=== PATIENT | male | born 1940 | race Caucasian/White ===

== ENCOUNTER 2017-07-17 20:25 | Inpatient (IN) | payer MEDICARE, OTHER ==
--- NOTE | 2017-07-17 21:20 | ER Document Report ---
ED Respiratory Problem - General Chief Complaint: Shortness Of Breath Stated Complaint: SHORTNESS OF BREATH Time Seen by Provider: 07/17/17 21:08 Notes: Patient is a 77-year-old male that comes emergency department for chief complaint of shortness of breath, weakness, and nonproductive cough. He states he has not been feeling good for 2 weeks but tonight he started feeling much worse. He denies fever, reports pain in his chest and is having frequent coughing episodes. He reports some pain in his upper abdomen as well. Past medical history includes CAD with bypass, AICD, CHF, atrial fibrillation, he denies history of COPD or asthma. TRAVEL OUTSIDE OF THE [place] IN LAST 30 DAYS: No - Related Data Allergies/Adverse Reactions: Penicillins Allergy (Verified 07/17/17 20:26) Generalized rash Past Medical History - General Information source: Patient - Social History Smoking Status: Never Smoker Chew tobacco use (# tins/day): No Frequency of alcohol use: None Drug Abuse: None Lives with: Family Family History: Reviewed & Not Pertinent Patient has suicidal ideation: No Patient has homicidal ideation: No - Past Medical History Cardiac Medical History: Reports: Hx Atrial Fibrillation, Hx Congestive Heart Failure, Hx Heart Attack - 1991, Hx Hypercholesterolemia Denies: Hx Hypertension Pulmonary Medical History: Reports: Hx COPD Denies: Hx Asthma Neurological Medical History: Denies: Hx Cerebrovascular Accident, Hx Seizures Renal/ Medical History: Denies: Hx Peritoneal Dialysis GI Medical History: Reports: Hx Hiatal Hernia. Denies: Hx Hepatitis, Hx Ulcer Musculoskeltal Medical History: Reports Hx Arthritis Psychiatric Medical History: Denies: Hx Depression Infectious Medical History: Denies: Hx Hepatitis Past Surgical History: Reports: Hx Open Heart Surgery - TRIPLE BYPASS 1991, Hx Pacemaker Review of Systems - Review of Systems Constitutional: No symptoms reported EENT: No symptoms reported Cardiovascular: See HPI Respiratory: See HPI Gastrointestinal: No symptoms reported Genitourinary: No symptoms reported Male Genitourinary: No symptoms reported Musculoskeletal: No symptoms reported Skin: No symptoms reported Hematologic/Lymphatic: No symptoms reported Neurological/Psychological: No symptoms reported Physical Exam - Vital signs Vitals: Temp Pulse Resp BP Pulse Ox 99.0 F 65 20 128/55 H 92 07/17/17 20:45 07/17/17 20:45 07/17/17 20:45 07/17/17 20:45 07/17/17 20:45 Interpretation: Normal - General General appearance: Appears well In distress: None - HEENT Head: Normocephalic, Atraumatic Eyes: Normal Pupils: PERRL - Respiratory Respiratory status: No respiratory distress, Tachypnea. No: Retractions Chest status: Nontender Breath sounds: Nonproductive cough, Rales - Rales are heard on exam, mainly in the lung bases, greater on the left than the right. No: Wheezing Chest palpation: Normal - Cardiovascular Rhythm: Regular Heart sounds: Normal auscultation Murmur: No - Abdominal Inspection: Normal Distension: No distension Bowel sounds: Normal Tenderness: Nontender Organomegaly: No organomegaly - Back Back: Normal, Nontender - Extremities General upper extremity: Normal inspection, Nontender, Normal color, Normal ROM , Normal temperature General lower extremity: Normal inspection, Nontender, Normal color, Normal ROM , Normal temperature, Normal weight bearing. No: Afua's sign - Neurological Neuro grossly intact: Yes Cognition: Normal Orientation: AAOx4 Neto Coma Scale Eye Opening: Spontaneous Neto Coma Scale Verbal: Oriented Neto Coma Scale Motor: Obeys Commands Neto Coma Scale Total: 15 Speech: Normal Motor strength normal: LUE, RUE, LLE, RLE Sensory: Normal - Psychological Associated symptoms: Normal affect, Normal mood - Skin Skin Temperature: Warm Skin Moisture: Dry Skin Color: Normal Course - Re-evaluation Re-evalutation: EKG shows atrial paced rhythm without T-wave inversions or ST segment changes in consecutive leads. Patient has rales on examination, he has mild tachypnea, he has hypoxia on room air and dyspnea on exertion. He does have a nonproductive cough. No leukocytosis, chest x-ray showing vascular congestion, BNP is elevated, troponin is not elevated. Chemistry unremarkable. Consistent with CHF exacerbation. Patient states he is compliant with his Lasix 40 mg daily, he is no longer on digoxin. Because of patient's hypoxia without oxygen, dyspnea on exertion, and pulmonary vascular congestion patient was started on Lasix, given nitroglycerin patch, will discuss for admission with hospitalist. Patient and state understanding and agreement with this plan. Discussed with Dr. Sandoval, internal medicine, patient will be admitted to telemetry. - Vital Signs Vital signs: Temp Pulse Resp BP Pulse Ox 98.2 F 75 16 129/57 H 96 07/18/17 04:07 07/18/17 04:07 07/18/17 04:07 07/18/17 04:07 07/18/17 04:07 - Laboratory Result Diagrams: 07/18/17 03:50 07/17/17 21:45 Laboratory results interpreted by me: 07/17/17 07/17/17 07/17/17 21:45 21:45 21:45 RBC 3.18 L Hgb 9.9 L Hct 29.0 L RDW 14.8 H VBG pH BUN 30 H Creatinine 1.28 H Est GFR (Non-Af Amer) 54 L NT-Pro-B Natriuret Pep 8800 H 07/17/17 21:45 RBC Hgb Hct RDW VBG pH 7.45 H BUN Creatinine Est GFR (Non-Af Amer) NT-Pro-B Natriuret Pep Discharge - Discharge Clinical Impression: Pulmonary vascular congestion, Hypoxia CHF, acute on chronic Qualifiers: Heart failure type: unspecified Qualified Code(s): I50.9 - Heart failure, unspecified Condition: Stable Disposition: ADMITTED INPATIENT Admitting Provider: Hospitalist Unit Admitted: Telemetry
--- NOTE | 2017-07-17 22:06 | RADIOLOGY REPORT (SQ) ---
EXAM DESCRIPTION: CHEST SINGLE VIEW COMPLETED DATE/TIME: 07/17/2017 9:53 pm REASON FOR STUDY: shortness of breath, cough, hypoxia COMPARISON: 01/05/2016 NUMBER OF VIEWS: Two views. TECHNIQUE: Frontal and lateral radiographic views of the chest acquired. LIMITATIONS: None. FINDINGS: LUNGS AND PLEURA: No opacities, masses or pneumothorax. No pleural effusion. MEDIASTINUM AND HILAR STRUCTURES: No masses or contour abnormality. HEART AND VASCULAR STRUCTURES: Cardiac enlargement. Vascular congestion. BONES: No acute findings. HARDWARE: Cardiac AICD. OTHER: No other significant finding. IMPRESSION: CARDIAC ENLARGEMENT. VASCULAR CONGESTION. TECHNICAL DOCUMENTATION: JOB ID: [id number] [employer]- All Rights Reserved Reading location - IP/workstation name: [email or web address]
[2017-07-17 22:07] LABS: VENOUS BLOOD BASE EXCESS 1.7 mmol/L; VENOUS BLOOD HCO3 25.6 mmol/L (20-32); VENOUS BLOOD PH 7.45 (7.30-7.42)
[2017-07-17 22:08] LABS: ABSOLUTE BASOPHILS # (AUTO) 0.1 10^3/uL (0.0-0.2); ABSOLUTE EOSINOPHILS # (AUTO) 0.3 10^3/uL (0.0-0.6); ABSOLUTE LYMPHOCYTES (AUTO) 1.7 10^3/uL (0.5-4.7); ABSOLUTE MONOCYTES (AUTO) 0.7 10^3/uL (0.1-1.4); ABSOLUTE NEUT (AUTO) 5.5 10^3/uL (1.7-8.2); EOSINOPHILS % (AUTO) 3.3 % (0-6); HEMOGLOBIN 9.9 g/dL (13.5-17.0); LYMPHOCYTES % (AUTO) 20.9 % (13-45); MEAN CORPUSCULAR HEMOGLOBIN 31.1 pg (27.0-33.4); MEAN CORPUSCULAR HGB CONC 34.1 g/dL (32.0-36.0); MEAN CORPUSCULAR VOLUME 91 fl (80-97); MONOCYTES % (AUTO) 8.3 % (3-13); PLATELET COUNT 241 10^3/uL (150-450); RED BLOOD COUNT 3.18 10^6/uL (4.35-5.55); RED CELL DISTRIBUTION WIDTH 14.8 % (11.5-14.0); SEGMENTED NEUTROPHILS % (AUTO) 66.5 % (42-78); TOTAL CELLS COUNTED % (AUTO) 100 %; WHITE BLOOD COUNT 8.3 10^3/uL (4.0-10.5)
[2017-07-17 22:24] LABS: ALANINE AMINOTRANSFERASE 22 U/L (21-72); ALBUMIN 3.9 g/dL (3.5-5.0); ALKALINE PHOSPHATASE 56 U/L (38-126); ANION GAP 11 (5-19); ASPARTATE AMINO TRANSFERASE 23 U/L (17-59); BILIRUBIN,DIRECT 0.2 mg/dL (0.0-0.4); BILIRUBIN,TOTAL 0.7 mg/dL (0.2-1.3); BLOOD UREA NITROGEN 30 mg/dL (7-20); CALCIUM 9.3 mg/dL (8.4-10.2); CARBON DIOXIDE 27 mmol/L (22-30); CHLORIDE 99 mmol/L (98-107); CREATINE KINASE 70 U/L (55-170); GLUCOSE 104 mg/dL (75-110); POTASSIUM 4.4 mmol/L (3.6-5.0); SODIUM 137.1 mmol/L (137-145); TOTAL PROTEIN 6.3 g/dL (6.3-8.2)
[2017-07-17 22:36] LABS: CREATINE KINASE MB 0.94 ng/mL (<4.55); NT PRO BNP 8800 pg/mL (<450)
[2017-07-17 22:37] LABS: TROPONIN I < 0.012 ng/mL
[2017-07-17] MEDS ORDERED: NITROGLYCERIN 5 MG (0.2 MG/HR) PATCH.TD24 TD ONE (22:53)
[2017-07-17] MEDS ORDERED: FUROSEMIDE INJ/PF 40 MG/4 ML SDV IV ONE (22:54)
[2017-07-17] MEDS ORDERED: ENALAPRILAT DIHYDRATE INJ/PF 1.25 MG/1 ML SDV IV PRN (23:00)
[2017-07-17] MEDS ORDERED: MAG HYDROX/AL HYDROX/SIMETH SUSP 30 ML UDCUP PO PRN (23:00)
[2017-07-17] MEDS ORDERED: MAGNESIUM HYDROXIDE SUSP 30 ML UDCUP PO PRN (23:00)
[2017-07-18] MEDS ORDERED: ACETAMINOPHEN 325 MG TABLET ONE (00:12)
[2017-07-18] MEDS ORDERED: CAPTOPRIL 25 MG TABLET PO ONE (00:15)
[2017-07-18] MEDS: ACETAMINOPHEN 325 MG TABLET PO PRN ×2 (00:17→16:41)
[2017-07-18 04:39] LABS: ABSOLUTE BASOPHILS # (AUTO) 0.1 10^3/uL (0.0-0.2); ABSOLUTE EOSINOPHILS # (AUTO) 0.2 10^3/uL (0.0-0.6); ABSOLUTE LYMPHOCYTES (AUTO) 1.6 10^3/uL (0.5-4.7); ABSOLUTE MONOCYTES (AUTO) 0.6 10^3/uL (0.1-1.4); ABSOLUTE NEUT (AUTO) 6.9 10^3/uL (1.7-8.2); ABSOLUTE RETICS # 0.098 10^6/uL (0.028-0.122); BASOPHILS % (AUTO) 0.8 % (0-2); EOSINOPHILS % (AUTO) 2.1 % (0-6); HEMATOCRIT 28.8 % (37.9-51.0); HEMOGLOBIN 9.9 g/dL (13.5-17.0); LYMPHOCYTES % (AUTO) 16.7 % (13-45); MEAN CORPUSCULAR HGB CONC 34.3 g/dL (32.0-36.0); MEAN CORPUSCULAR VOLUME 91 fl (80-97); MONOCYTES % (AUTO) 6.7 % (3-13); PLATELET COUNT 228 10^3/uL (150-450); RED BLOOD COUNT 3.19 10^6/uL (4.35-5.55); RED CELL DISTRIBUTION WIDTH 14.8 % (11.5-14.0); RETICULOCYTE COUNT (AUTO) 3.07 % (0.66-2.85); SEGMENTED NEUTROPHILS % (AUTO) 73.7 % (42-78); TOTAL CELLS COUNTED % (AUTO) 100 %; WHITE BLOOD COUNT 9.3 10^3/uL (4.0-10.5)
--- NOTE | 2017-07-18 04:39 | PDOC H&P ---
History of Present Illness Admission Date/PCP: 07/17/17 23:15 MINA GARCIA MD Patient complains of: Shortness of breath History of Present Illness: ENRIQUETA BRINK is a 77 year old male with a past medical history of atrial fibrillation, congestive heart failure, coronary artery disease, status post coronary artery bypass graft in 1991, permanent pacemaker placement, dyslipidemia, and COPD. Patient presents with 2 weeks of shortness of breath and cough with clear sputum. Denying rhinorrhea, postnasal drip, GERD fever or chest pain. He denies recent change in medications but admits noncompliance with diet. In the emergency room his workup is notable for a hemoglobin of only 9.9 from baseline of 11, a chest x-ray showing cardiomegaly and fluid overload with a BNP of 8000. He started on IV Lasix and for the hospitalist for admission. Past Medical History Cardiac Medical History: Reports: Atrial Fibrillation, Congestive Heart Failure , Myocardial Infarction - 1991, Hyperlipidema Denies: Hypertension Pulmonary Medical History: Reports: Chronic Obstructive Pulmonary Disease (COPD) Denies: Asthma Neurological Medical History: Denies: Seizures GI Medical History: Reports: Hiatal Hernia Denies: Hepatitis Musculoskeltal Medical History: Reports: Arthritis Psychiatric Medical History: Denies: Depression Hematology: Denies: Anemia, Sickle Cell Disease Past Surgical History Past Surgical History: Reports: Coronary Artery Bypass Graft, Pacemaker Social History Information Source: Patient, [facility] Records Lives with: Spouse/Significant other Smoking Status: Former Smoker Number of Years Smokin Last Time Smoked: approx 1976 Frequency of Alcohol Use: None Hx Recreational Drug Use: No Drugs: None Hx Prescription Drug Abuse: No - Advance Directive Resuscitation Status: Full Code Family History Family History: Hypertension Parental Family History Reviewed: Yes Children Family History Reviewed: Yes Sibling(s) Family History Reviewed.: Yes Medication/Allergy Home Medications: Alfuzosin HCl [Alfuzosin HCl ER] 10 mg PO DAILY 01/06/16 Apixaban [Eliquis 2.5 mg Tablet] 2.5 mg PO BID 01/06/16 Aspirin [Aspirin 81 mg Chewable Tablet] 81 mg PO DAILY 01/06/16 Atorvastatin Calcium 40 mg PO DAILY 01/06/16 Captopril [Capoten 25 mg Tablet] 25 mg PO Q12H 01/06/16 Carvedilol [Coreg 25 mg Tablet] 1 tab PO Q12 01/06/16 Cetirizine HCl [Zyrtec 10 mg Tablet] 10 mg PO DAILY 01/06/16 Digoxin 250 mcg PO DAILY 01/06/16 Fenofibrate Nanocrystallized [Fenofibrate] 145 mg PO DAILY 01/06/16 [place]-3/Dha/Epa/Fish Oil [Fish Oil 1,000 mg Softgel] 1 cap PO BID 01/06/16 Ranitidine HCl [Zantac 150 mg Tablet] 150 mg PO BID 01/06/16 Acetaminophen [Tylenol 325 mg Tablet] 650 mg PO Q8HP PRN tablet 01/07/16 Furosemide [Lasix 40 mg Tablet] 20 mg PO BID #90 tablet 01/07/16 Allergies/Adverse Reactions: Penicillins Allergy (Verified 07/17/17 20:26) Generalized rash Review of Systems Constitutional: PRESENT: as per HPI, fatigue. ABSENT: fever(s), headache(s), night sweats, weight gain Eyes: ABSENT: visual disturbances Ears: ABSENT: hearing changes Cardiovascular: PRESENT: as per HPI, dyspnea on exertion, edema, orthropnea. ABSENT: chest pain, palpitations Respiratory: PRESENT: as per HPI, cough. ABSENT: dyspnea, hemoptysis Gastrointestinal: ABSENT: abdominal pain, constipation, diarrhea, hematemesis, hematochezia, nausea, vomiting Genitourinary: ABSENT: dysuria, hematuria Musculoskeletal: ABSENT: joint swelling Integumentary: ABSENT: rash, wounds Neurological: ABSENT: abnormal gait, abnormal speech, confusion, dizziness, focal weakness, syncope Psychiatric: ABSENT: anxiety, depression, homidical ideation, suicidal ideation Endocrine: ABSENT: cold intolerance, heat intolerance, polydipsia, polyuria Hematologic/Lymphatic: ABSENT: easy bleeding, easy bruising Physical Exam Vital Signs: Temp Pulse Resp BP Pulse Ox 98.2 F 75 16 129/57 H 96 07/18/17 04:07 07/18/17 04:07 07/18/17 04:07 07/18/17 04:07 07/18/17 04:07 Intake & Output 07/16/17 07/17/17 07/18/17 11:59 11:59 11:59 Output Total 500 Balance -500 Weight 76.6 kg General appearance: PRESENT: cooperative, mild distress. ABSENT: hard of hearing, severe distress Head exam: PRESENT: atraumatic, normocephalic Eye exam: PRESENT: conjunctiva pink, EOMI, PERRLA. ABSENT: scleral icterus Ear exam: PRESENT: normal external ear exam Mouth exam: PRESENT: moist, tongue midline Neck exam: PRESENT: JVD. ABSENT: carotid bruit, lymphadenopathy, thyromegaly Respiratory exam: PRESENT: crackles, prolonged expiratory phas, rales, tachypnea. ABSENT: rhonchi, wheezes Cardiovascular exam: PRESENT: RRR, +S1, +S2 Pulses: PRESENT: normal dorsalis pedis pul Vascular exam: PRESENT: normal capillary refill GI/Abdominal exam: PRESENT: normal bowel sounds, soft. ABSENT: distended, guarding, mass, organolmegaly, rebound, tenderness Rectal exam: PRESENT: deferred Extremities exam: PRESENT: full ROM. ABSENT: calf tenderness, clubbing, pedal edema Neurological exam: PRESENT: alert, awake, oriented to person, oriented to place , oriented to time, oriented to situation, CN II-XII grossly intact. ABSENT: motor sensory deficit Psychiatric exam: PRESENT: appropriate affect, normal mood. ABSENT: homicidal ideation, suicidal ideation Skin exam: PRESENT: dry, intact, warm. ABSENT: cyanosis, rash Results Impressions: Chest X-Ray 07/17/17 21:18 IMPRESSION: CARDIAC ENLARGEMENT. VASCULAR CONGESTION. Assessment & Plan - Diagnosis (1) CHF, acute on chronic Qualifiers: Heart failure type: unspecified Qualified Code(s): I50.9 - Heart failure, unspecified Is this a current diagnosis for this admission?: Yes Plan: CHF care set, gentle diuresis medication optimization and education. (2) Anemia Is this a current diagnosis for this admission?: Yes Plan: Suspected iron deficiency follow-up labs (3) Acute renal failure Is this a current diagnosis for this admission?: Yes Plan: Likely secondary to CHF exacerbation reevaluate following compensation (4) CAD (coronary artery disease) Qualifiers: Coronary Disease-Associated Artery/Lesion type: mo[place] artery Associated angina: without angina Is this a current diagnosis for this admission?: Yes Plan: Serial cardiac enzymes. - Time Time Spent: 50 to 70 Minutes - Inpatient Certification Medical Necessity: Need Close Monitoring Due to Risk of Patient Decompensation
[2017-07-18 05:02] LABS: IRON(TIBC) 40.4 ug/dL (49-181)
[2017-07-18 05:14] LABS: CREATINE KINASE MB 0.76 ng/mL (<4.55)
[2017-07-18 05:18] LABS: TROPONIN I < 0.012 ng/mL
[2017-07-18 06:14] LABS: FOLATE > 20.00 ng/mL (>2.76)
[2017-07-18] MEDS ORDERED: ASPIRIN 81 MG TABLET, CHEWABLE PO SCH (10:00)
[2017-07-18] MEDS ORDERED: CARVEDILOL 12.5 MG TABLET PO SCH (10:00)
[2017-07-18 10:36] LABS: ANION GAP 12 (5-19); BLOOD UREA NITROGEN 26 mg/dL (7-20); CALCIUM 9.4 mg/dL (8.4-10.2); CARBON DIOXIDE 27 mmol/L (22-30); CHLORIDE 100 mmol/L (98-107); CREATINE KINASE 65 U/L (55-170); GLUCOSE 145 mg/dL (75-110); POTASSIUM 3.7 mmol/L (3.6-5.0); SODIUM 139.3 mmol/L (137-145)
--- NOTE | 2017-07-18 10:49 | EKG REPORT ---
SEVERITY:- ABNORMAL ECG - ATRIAL-SENSED VENTRICULAR-PACED RHYTHM : Confirmed by: Usman Galicia 18-Jul-2017 10:48:09
[2017-07-18] MEDS: FUROSEMIDE INJ/PF 40 MG/4 ML SDV IV SCH ×2 (10:50→22:38)
[2017-07-18] MEDS: POTASSIUM CHLORIDE 10 MEQ TABLET.SA PO SCH ×2 (10:50→22:39)
[2017-07-18 10:54] LABS: TROPONIN I < 0.012 ng/mL
--- NOTE | 2017-07-18 13:40 | XCELERA REPORT ---
[address] [address] Transthoracic Echocardiogram Report Name: ENRIQUETA BRINK Age: 77 yrs Gender: Male : 1940 Patient Status: Inpatient Patient Location: [address] [place], [place] [address] Study Date: 07/18/2017 08:26 AM Height: 65 in Weight: 168 lb BSA: 1.8 m2 Procedure: A complete two-dimensional transthoracic echocardiogram was performed (2D, M-mode, spectral and color flow Doppler). The study was technically difficult with many images being suboptimal in quality. Reason For Study: overload Ordering Physician: RENATA CABRAL Performed By: Claribel Newby Interpretation Summary LV EF is 35% The left ventricle is moderately dilated. Left ventricular systolic function is moderately reduced. There is normal left ventricular wall thickness. Doppler measurements suggest pseudonormalized left ventricular relaxation, which is associated with grade II/IV or mild to moderate diastolic dysfunction There is apical wall akinesis There is mild to moderate global hypokinesis of the left ventricle. The right ventricle is grossly normal size. The right ventricular systolic function is normal. The left atrium is moderately dilated. The right atrium is normal in size There is a moderate amount of mitral regurgitation There is no mitral valve stenosis. There is a mild amount of aortic regurgitation There is no aortic valve stenosis There is a mild amount of tricuspid regurgitation There is moderate to severe pulmonary hypertension by echo Best estimated RVSP is approximately 60 mm/Hg. The aortic root is not well visualized. The inferior vena cava appeared normal and decreased < 50% with respiration (RAP 10-15 mmHg) There is no pericardial effusion. MMode/2D Measurements & Calculations RVDd: 3.3 cm LVIDd: 7.1 cm FS: 26.8 % Ao root diam: 2.8 cm IVSd: 0.61 cm LVIDs: 5.2 cm EDV(Teich): 263.2 ml LVPWd: 0.86 cm ESV(Teich): 129.2 ml Ao root area: 6.1 cm2 EF(Teich): 50.9 % Doppler Measurements & Calculations MV E max joey: MV dec slope: Ao V2 max: AI max joey: 100.8 cm/sec 178.8 cm/sec 314.5 cm/sec MV A max joey: 630.0 cm/sec2 Ao max PG: AI max P.6 cm/sec MV dec time: 12.8 mmHg 39.6 mmHg MV E/A: 2.0 0.16 sec AI dec slope: 204.3 cm/sec2 AI P1/2t: 451.0 msec LV V1 max PG: MR max joey: PA V2 max: PI end-d joey: 3.1 mmHg 516.0 cm/sec 109.7 cm/sec 177.1 cm/sec LV V1 max: MR max PG: PA max P.2 cm/sec 106.5 mmHg 4.8 mmHg TR max joey: 383.0 cm/sec TR max P.8 mmHg Left Ventricle The left ventricle is moderately dilated. There is normal left ventricular wall thickness. Left ventricular systolic function is moderately reduced. LV EF is 35%. Doppler measurements suggest pseudonormalized left ventricular relaxation, which is associated with grade II/IV or mild to moderate diastolic dysfunction. There is apical wall akinesis. There is mild to moderate global hypokinesis of the left ventricle. Right Ventricle The right ventricle is grossly normal size. There is normal right ventricular wall thickness. The right ventricular systolic function is normal. Atria The right atrium is normal in size. The left atrium is moderately dilated. Interarterial septum not well visualized and not well dopplered. Cannot comment on ASD/PFO presence. Mitral Valve The mitral valve leaflets are sclerotic, but show no functional abnormalities. There is no mitral valve stenosis. There is a moderate amount of mitral regurgitation. Aortic Valve The aortic valve is mildly calcified. There is no aortic valve stenosis. There is a mild amount of aortic regurgitation. Tricuspid Valve The tricuspid valve is not well visualized, but is grossly normal. There is no tricuspid stenosis. There is a mild amount of tricuspid regurgitation. There is moderate to severe pulmonary hypertension by echo. Best estimated RVSP is approximately 60 mm/Hg. Pulmonic Valve The pulmonic valve is not well visualized. Great Vessels The aortic root is not well visualized. The inferior vena cava appeared normal and decreased < 50% with respiration (RAP 10-15 mmHg). Effusions There is no pericardial effusion. : RENATA CABRAL > Usman Galicia
[2017-07-18] MEDS: APIXABAN 2.5 MG TABLET PO SCH ×2 (14:23→21:10)
[2017-07-18] MEDS: CAPTOPRIL 25 MG TABLET PO SCH ×2 (14:23→22:40)
[2017-07-18] MEDS ORDERED: OXYCODONE-ACETAMINOPHEN 5-325 MG TABLET PO PRN (15:58)
[2017-07-18 16:36] LABS: CREATINE KINASE MB 0.82 ng/mL (<4.55)
[2017-07-18 16:37] LABS: TROPONIN I < 0.012 ng/mL
[2017-07-18] MEDS ORDERED: OMEGA-3 ACID ETHYL ESTERS 1 GM CAPSULE PO SCH (18:00)
[2017-07-18] MEDS ORDERED: SOTALOL HCL 80 MG TABLET PO SCH (22:00)
[2017-07-18] MEDS ORDERED: ATORVASTATIN CALCIUM 40 MG TABLET PO SCH (22:00)
[2017-07-18] MEDS ORDERED: (PENDING PHARMACY ID) (Rosuvastatin Calcium [Crestor 20 Mg Tablet] 20 MG) PO SCH (22:00)
[2017-07-19 05:36] LABS: ABSOLUTE BASOPHILS # (AUTO) 0.1 10^3/uL (0.0-0.2); ABSOLUTE EOSINOPHILS # (AUTO) 0.4 10^3/uL (0.0-0.6); ABSOLUTE MONOCYTES (AUTO) 0.7 10^3/uL (0.1-1.4); ABSOLUTE NEUT (AUTO) 5.5 10^3/uL (1.7-8.2); BASOPHILS % (AUTO) 1.1 % (0-2); EOSINOPHILS % (AUTO) 4.8 % (0-6); HEMATOCRIT 31.3 % (37.9-51.0); HEMOGLOBIN 10.8 g/dL (13.5-17.0); LYMPHOCYTES % (AUTO) 22.8 % (13-45); MEAN CORPUSCULAR HEMOGLOBIN 31.1 pg (27.0-33.4); MEAN CORPUSCULAR HGB CONC 34.4 g/dL (32.0-36.0); MEAN CORPUSCULAR VOLUME 90 fl (80-97); MONOCYTES % (AUTO) 8.6 % (3-13); PLATELET COUNT 269 10^3/uL (150-450); RED BLOOD COUNT 3.47 10^6/uL (4.35-5.55); RED CELL DISTRIBUTION WIDTH 14.6 % (11.5-14.0); SEGMENTED NEUTROPHILS % (AUTO) 62.7 % (42-78); TOTAL CELLS COUNTED % (AUTO) 100 %; WHITE BLOOD COUNT 8.7 10^3/uL (4.0-10.5)
[2017-07-19 05:51] LABS: ANION GAP 11 (5-19); BLOOD UREA NITROGEN 27 mg/dL (7-20); CALCIUM 9.6 mg/dL (8.4-10.2); CARBON DIOXIDE 25 mmol/L (22-30); CHLORIDE 103 mmol/L (98-107); GLUCOSE 108 mg/dL (75-110); SODIUM 139.4 mmol/L (137-145)
[2017-07-19 09:18] VITALS: BP 130/56
--- NOTE | 2017-07-19 09:18 | PDOC PROGRESS REPORT ---
Subjective Progress Note for:: 07/18/17 Subjective:: Patient admitted with difficulty breathing and shortness of breath found to be in decompensated CHF. EQUINE INTERNSHIP was about 8000 and chest x-ray did reveal pulmonary vascular congestion. He has been started on IV Lasix and also had an echocardiogram done today. Reason For Visit: HEART FAILURE Physical Exam Vital Signs: Temp Pulse Resp BP Pulse Ox 98.2 F 59 L 17 120/51 L 94 07/18/17 11:22 07/18/17 11:22 07/18/17 11:22 07/18/17 11:22 07/18/17 11:22 Intake & Output 07/17/17 07/18/17 07/19/17 06:59 06:59 06:59 Intake Total 105 Output Total 1000 Balance -895 Weight 76.6 kg General appearance: PRESENT: no acute distress, well-developed Head exam: PRESENT: atraumatic Eye exam: PRESENT: conjunctiva pink, EOMI, PERRLA. ABSENT: scleral icterus Neck exam: ABSENT: carotid bruit, JVD, lymphadenopathy, thyromegaly Respiratory exam: PRESENT: clear to auscultation fili. ABSENT: rales, rhonchi, wheezes Cardiovascular exam: PRESENT: RRR. ABSENT: diastolic murmur, rubs, systolic murmur Pulses: PRESENT: normal dorsalis pedis pul GI/Abdominal exam: PRESENT: normal bowel sounds, soft. ABSENT: distended, guarding, mass, organolmegaly, rebound, tenderness Rectal exam: PRESENT: deferred Neurological exam: PRESENT: alert, awake, oriented to person, oriented to time Psychiatric exam: PRESENT: appropriate affect, normal mood. ABSENT: homicidal ideation, suicidal ideation Results Laboratory Results: 07/18/17 03:50 07/18/17 09:46 07/18/17 07/18/17 07/18/17 03:50 03:50 03:50 WBC 9.3 RBC 3.19 L Hgb 9.9 L Hct 28.8 L MCV 91 MCH 31.0 MCHC 34.3 RDW 14.8 H Plt Count 228 Seg Neutrophils % 73.7 Lymphocytes % 16.7 Monocytes % 6.7 Eosinophils % 2.1 Basophils % 0.8 Absolute Neutrophils 6.9 Absolute Lymphocytes 1.6 Absolute Monocytes 0.6 Absolute Eosinophils 0.2 Absolute Basophils 0.1 Retic Count (auto) 3.07 H Cancelled Absolute Retic 0.098 Cancelled Sodium Potassium Chloride Carbon Dioxide Anion Gap BUN Creatinine Est GFR ( Amer) Est GFR (Non-Af Amer) Glucose Calcium Iron 40.4 L TIBC 399 % Saturation 10 Ferritin 121.00 Vitamin B12 601.0 Folate > 20.00 07/18/17 09:46 WBC RBC Hgb Hct MCV MCH MCHC RDW Plt Count Seg Neutrophils % Lymphocytes % Monocytes % Eosinophils % Basophils % Absolute Neutrophils Absolute Lymphocytes Absolute Monocytes Absolute Eosinophils Absolute Basophils Retic Count (auto) Absolute Retic Sodium 139.3 Potassium 3.7 Chloride 100 Carbon Dioxide 27 Anion Gap 12 BUN 26 H Creatinine 1.05 Est GFR ( Amer) > 60 Est GFR (Non-Af Amer) > 60 Glucose 145 H Calcium 9.4 Iron TIBC % Saturation Ferritin Vitamin B12 Folate 07/18/17 07/18/17 07/18/17 03:50 03:50 09:46 Creatine Kinase 67 65 CK-MB (CK-2) 0.76 Troponin I < 0.012 07/18/17 09:46 Creatine Kinase CK-MB (CK-2) 0.80 Troponin I < 0.012 Impressions: Chest X-Ray 07/17/17 21:18 IMPRESSION: CARDIAC ENLARGEMENT. VASCULAR CONGESTION. Assessment & Plan - Time Time Spent with patient: 15-24 minutes Medications reviewed and adjusted accordingly: Yes Anticipated discharge: Home - Inpatient Certification Based on my medical assessment, after consideration of the patient's comorbidities, presenting symptoms, or acuity I expect that the services needed warrant INPATIENT care.: Yes Medical Necessity: Need Close Monitoring Due to Risk of Patient Decompensation, Risk of Diagnosis Which Will Require Inpatient Eval/Care/Monitoring - Plan Summary Plan Summary: Acutely decompensated CHF on chronic CHF. Will continue with diuresis and follow-up on echo results. 2. Anemia follow-up on labs 3 stable coronary artery disease 4. Acute renal failure will follow labs 5. Echocardiogram shows ejection fraction of 35% with moderately reduced left ventricular systolic function and grade 2 diastolic dysfunction
--- NOTE | 2017-07-19 09:25 | PDOC DISCHARGE SUMMARY ---
General - Admit/Disc Date/PCP Admission Date/Primary Care Provider: 07/17/17 23:15 MINA GARCIA MD Discharge Date: 07/19/17 - Discharge Diagnosis (1) Acute renal failure Is this a current diagnosis for this admission?: Yes (2) Anemia Is this a current diagnosis for this admission?: Yes (3) CHF, acute on chronic Is this a current diagnosis for this admission?: Yes (4) CAD (coronary artery disease) Is this a current diagnosis for this admission?: Yes (5) Chronic a-fib Is this a current diagnosis for this admission?: Yes (6) Chronic anticoagulation Is this a current diagnosis for this admission?: Yes (7) HTN (hypertension) Is this a current diagnosis for this admission?: Yes (8) Pacemaker Is this a current diagnosis for this admission?: Yes - Additional Information Resuscitation Status: Full Code Discharge Diet: Cardiac Discharge Activity: Activity As Tolerated, Balance Activity w/Rest, Weigh Daily Home Medications: Alfuzosin HCl [Alfuzosin HCl ER] 10 mg PO DAILY 01/06/16 Captopril [Capoten 25 mg Tablet] 25 mg PO Q12 01/06/16 Cetirizine HCl [Zyrtec 10 mg Tablet] 10 mg PO DAILY 01/06/16 Ranitidine HCl [Zantac 150 mg Tablet] 150 mg PO BID 01/06/16 Apixaban [Eliquis 5 mg Tablet] 5 mg PO Q12 07/18/17 Aspirin [Aspirin EC] 81 mg PO DAILY 07/18/17 Furosemide [Lasix 40 mg Tablet] 60 mg PO BID 07/18/17 [place]-3 Acid Ethyl Esters [Lovaza 1 gm Capsule] 1 gm PO TID 07/18/17 Potassium Chloride [Klor-Con 10 Meq Tablet.sa] 10 meq PO DAILY 07/18/17 Rosuvastatin Calcium [Crestor 20 mg Tablet] 20 mg PO QHS 07/18/17 Sotalol HCl [Betapace 80 mg Tablet] 80 mg PO Q12 07/18/17 History of Present Illness Patient complains of: Difficulty breathing and shortness of breath History of Present Illness: ENRIQUETA BRINK is a 77 year old male Hospital Course Hospital Course: Patient admitted with difficulty breathing and shortness of breath found to be in decompensated CHF. BNP was about 8000 and chest x-ray did reveal pulmonary vascular congestion. He was treated with IV Lasix. Echocardiogram done revealed an ejection fraction of about 35%. 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 He was diuresed pretty well and in fact patient appears to have recovered from his bout of CHF pretty quickly. He has been ambulating along the hallways with no difficulties breathing and his vital signs have remained stable. It is felt that he can be discharged home for outpatient follow-up Physical Exam Vital Signs: Temp Pulse Resp BP Pulse Ox 98.5 F 62 14 130/56 H 96 07/19/17 09:16 07/19/17 09:16 07/19/17 09:16 07/19/17 09:16 07/19/17 09:16 Intake & Output 07/18/17 07/19/17 07/20/17 06:59 06:59 06:59 Intake Total 105 1466 Output Total 1000 2275 Balance -895 -809 Weight 76.6 kg 77.2 kg General appearance: PRESENT: no acute distress, well-developed Head exam: PRESENT: atraumatic Eye exam: PRESENT: conjunctiva pink, EOMI, PERRLA. ABSENT: scleral icterus Ear exam: PRESENT: normal external ear exam Neck exam: ABSENT: carotid bruit, JVD, lymphadenopathy, thyromegaly Respiratory exam: PRESENT: clear to auscultation fili. ABSENT: rales, rhonchi, wheezes Cardiovascular exam: PRESENT: +S1, +S2, other - Permanent pacemaker left chest wall Pulses: PRESENT: normal dorsalis pedis pul GI/Abdominal exam: PRESENT: normal bowel sounds, soft. ABSENT: distended, guarding, mass, organolmegaly, rebound, tenderness Extremities exam: PRESENT: full ROM. ABSENT: calf tenderness, clubbing, pedal edema Neurological exam: PRESENT: alert, awake, oriented to person, oriented to place , oriented to time, oriented to situation, CN II-XII grossly intact. ABSENT: motor sensory deficit Psychiatric exam: PRESENT: appropriate affect Results Laboratory Results: 07/19/17 04:57 07/19/17 04:57 07/18/17 07/19/17 07/19/17 09:46 04:57 04:57 WBC 8.7 RBC 3.47 L Hgb 10.8 L Hct 31.3 L MCV 90 MCH 31.1 MCHC 34.4 RDW 14.6 H Plt Count 269 Seg Neutrophils % 62.7 Lymphocytes % 22.8 Monocytes % 8.6 Eosinophils % 4.8 Basophils % 1.1 Absolute Neutrophils 5.5 Absolute Lymphocytes 2.0 Absolute Monocytes 0.7 Absolute Eosinophils 0.4 Absolute Basophils 0.1 Sodium 139.3 139.4 Potassium 3.7 4.0 Chloride 100 103 Carbon Dioxide 27 25 Anion Gap 12 11 BUN 26 H 27 H Creatinine 1.05 1.13 Est GFR ( Amer) > 60 > 60 Est GFR (Non-Af Amer) > 60 > 60 Glucose 145 H 108 Calcium 9.4 9.6 07/18/17 07/18/17 07/18/17 03:50 03:50 09:46 Creatine Kinase 67 65 CK-MB (CK-2) 0.76 Troponin I < 0.012 07/18/17 07/18/17 07/18/17 09:46 15:45 15:45 Creatine Kinase 63 CK-MB (CK-2) 0.80 0.82 Troponin I < 0.012 < 0.012 Impressions: Chest X-Ray 07/17/17 21:18 IMPRESSION: CARDIAC ENLARGEMENT. VASCULAR CONGESTION. Qualifiers - * PATEINT BEING DISCHARGED WITH ANY OF THE FOLLOWING DIAGNOSIS?: Heart Failure HF Pt being discharged on ACEI for LVEF less than 40%?: Yes HF Pt being discharged on ARBS for LVEF less than 40%?: No Reason(s) for not prescribing ARBS:: Not indicated HF Pt with Afib discharged with Warfarin?: No Reason(s) for not prescribing Warfarin:: Medical Contraindication HF Pt discharged on evidence-based Beta Sergio:: Yes
[2017-07-19] MEDS ORDERED: CETIRIZINE 10 MG TABLET PO SCH (10:00)
[2017-07-19] MEDS ORDERED: TAMSULOSIN HCL 0.4 MG CAP.SR.24H PO SCH (10:00)
[2017-07-19] MEDS ORDERED: (PENDING PHARMACY ID) (Alfuzosin Hcl [Alfuzosin Hcl Er] 10 MG) PO SCH (10:00)
== END 2017-07-19 09:54 | disposition home or self-care (01) | DRG 292 ==
LOC: ER 20:25 → EH 23:15 → 4N 07-18 02:10
PROVIDERS: ADMIT Internal Medicine; ATTEND Internal Medicine
DX: I11.0 Hypertensive heart disease with heart failure (principal); N17.9 Acute kidney failure, unspecified; I50.9 Heart failure, unspecified; I48.2 Chronic atrial fibrillation; D64.9 Anemia, unspecified; Z95.1 Presence of aortocoronary bypass graft; I25.10 Atherosclerotic heart disease of native coronary artery without angina pectoris; R09.02 Hypoxemia; Z95.0 Presence of cardiac pacemaker; Z79.01 Long term (current) use of anticoagulants; Z79.82 Long term (current) use of aspirin; Z79.899 Other long term (current) drug therapy
CPT/HCPCS: 36415; 71045; 80048; 80053; 82550; 82553; 82607; 82728; 82746; 82803; 83540; 83550; 83880; 84443; 84484; 85025; 85045; 87040; 93005; 93010; 93306; 96374; 99285; J1940; J3490

== ENCOUNTER 2018-08-28 21:05 | Inpatient (IN) | payer MEDICARE, OTHER ==
[2018-08-28] MEDS ORDERED: NITROGLYCERIN 5 MG (0.2 MG/HR) PATCH.TD24 TD ONE (21:46)
[2018-08-28] MEDS ORDERED: FUROSEMIDE INJ/PF 40 MG/4 ML SDV IV ONE (21:46)
--- NOTE | 2018-08-28 22:07 | ER Document Report ---
ED General - General Chief Complaint: Shortness Of Breath Stated Complaint: SHORTNESS OF BREATH Time Seen by Provider: 08/28/18 21:45 Mode of Arrival: Medic Information source: Patient, Relative, [facility] Records Notes: 78-year-old male with congestive heart failure, coronary artery disease, hyperl ipidemia, atrial fibrillation, COPD, reported recent OH presents with complaint of shortness of breath that started 1 day prior to arrival. Per family patient was recently discharged from [facility] after having an OH. Family member states that patient had a cardiac catheterization but no stents were needed. Patient denies chest pain and states that on his last admission he had significant chest pain which is now absent. TRAVEL OUTSIDE OF THE [place] IN LAST 30 DAYS: No - HPI Onset: Yesterday Onset/Duration: Gradual, Persistent Quality of pain: No pain Severity: None Associated symptoms: Leg swelling, Shortness of breath. denies: Chest pain, Fever, Nausea, Vomiting Exacerbated by: Movement, Walking, Coughing Relieved by: Denies Similar symptoms previously: Yes Recently seen / treated by doctor: Yes - Related Data Allergies/Adverse Reactions: Penicillins Allergy (Verified 07/17/17 20:26) Generalized rash Past Medical History - General Information source: Patient, [facility] Records - Social History Smoking Status: Former Smoker Frequency of alcohol use: None Drug Abuse: None Lives with: Family Family History: Reviewed & Not Pertinent Patient has suicidal ideation: No Patient has homicidal ideation: No - Past Medical History Cardiac Medical History: Reports: Hx Atrial Fibrillation, Hx Congestive Heart Failure, Hx Heart Attack - 1991, Hx Hypercholesterolemia Denies: Hx Hypertension Pulmonary Medical History: Reports: Hx COPD Denies: Hx Asthma Neurological Medical History: Denies: Hx Cerebrovascular Accident, Hx Seizures Renal/ Medical History: Denies: Hx Peritoneal Dialysis GI Medical History: Reports: Hx Hiatal Hernia. Denies: Hx Hepatitis, Hx Ulcer Musculoskeletal Medical History: Reports Hx Arthritis Psychiatric Medical History: Denies: Hx Depression Infectious Medical History: Denies: Hx Hepatitis Past Surgical History: Reports: Hx Coronary Artery Bypass Graft, Hx Open Heart Surgery - TRIPLE BYPASS 1991, Hx Pacemaker - Immunizations Hx Pneumococcal Vaccination: 02/15/17 Review of Systems - Review of Systems Notes: REVIEW OF SYSTEMS: CONSTITUTIONAL : Denies fever, chills, or sweats. Denies recent illness. Denies weight loss, recent hospitalizations. EENT: Denies visual changes, eye pain. Denies sore throat, oral lesions, difficulty swallowing. CARDIOVASCULAR: Denies chest pain. Denies palpitations. Denies lower extremity edema. RESPIRATORY: Denies cough. Denies wheezing. GASTROINTESTINAL: Denies abdominal pain. Denies nausea, vomiting, or diarrhea. Denies blood in vomitus, stools, or per rectum. Denies black, tarry stools. Denies constipation. GENITOURINARY: Denies difficulty urinating, painful urination, frequency, blood in urine, testicular pain or penile discharge. MUSCULOSKELETAL: Denies back or neck pain or stiffness. Denies joint pain or swelling. SKIN: Denies rash, lesions or sores. HEMATOLOGIC : Denies easy bruising or bleeding. LYMPHATIC: Denies swollen glands. NEUROLOGICAL: Denies confusion or altered mental status. Denies loss of consciousness. Denies dizziness or lightheadedness. Denies headache. Denies weakness or paralysis. Denies problems difficulty with ambulation, slurred speech. Denies sensory loss, numbness, or tingling. Denies seizures. PSYCHIATRIC: Denies anxiety or stress. Denies depression, suicidal ideation, or Physical Exam - Vital signs Vitals: Resp Pulse Ox 22 H 89 L 08/28/18 21:34 08/28/18 21:34 - Notes Notes: PHYSICAL EXAMINATION: GENERAL: Well-appearing, well-nourished and in no acute distress. HEAD: Atraumatic, normocephalic. EYES: Pupils equal round and reactive to light, extraocular movements intact, sclera anicteric, conjunctiva are normal. ENT: Nares patent, oropharynx clear without exudates. Moist mucous membranes. NECK: Normal range of motion, supple without lymphadenopathy LUNGS: Diminished breath sounds bilateral lower lung last. HEART: Regular rate and rhythm without murmurs ABDOMEN: Soft, nontender, nondistended abdomen. No guarding, no rebound. No masses appreciated. Musculoskeletal: Normal range of motion, no pitting or edema. No cyanosis. NEUROLOGICAL: Cranial nerves grossly intact. Normal speech, normal gait. Normal sensory, motor exams PSYCH: Normal mood, normal affect. SKIN: Warm, Dry, normal turgor, no rashes or lesions noted. Course - Re-evaluation Re-evalutation: 08/29/18 02:18 Laboratory 08/28/18 08/28/18 08/28/18 21:53 21:53 21:53 WBC 10.7 H RBC 2.72 L Hgb 8.7 L Hct 25.2 L MCV 93 MCH 32.0 MCHC 34.5 RDW 15.0 H Plt Count 256 Total Counted 100 Seg Neutrophils % Not Reportable Seg Neuts % (Manual) 84 H Lymphocytes % Not Reportable Lymphocytes % (Manual) 12 L Monocytes % Not Reportable Monocytes % (Manual) 4 Eosinophils % Not Reportable Eosinophils % (Manual) 0 Basophils % Not Reportable Basophils % (Manual) 0 Absolute Neutrophils Not Reportable Abs Neuts (Manual) 9.0 H Absolute Lymphocytes Not Reportable Abs Lymphs (Manual) 1.3 Absolute Monocytes Not Reportable Abs Monocytes (Manual) 0.4 Absolute Eosinophils Not Reportable Absolute Eos (Manual) 0.0 Absolute Basophils Not Reportable Abs Basophils (Manual) 0.0 Platelet Comment ADEQUATE Polychromasia SLIGHT VBG pH VBG pCO2 VBG HCO3 VBG Base Excess Sodium 136.2 L Potassium 4.2 Chloride 99 Carbon Dioxide 24 Anion Gap 13 BUN 35 H Creatinine 2.42 H Est GFR ( Amer) 31 L Est GFR (Non-Af Amer) 26 L Glucose 124 H Calcium 9.0 Total Bilirubin 0.8 Direct Bilirubin 0.4 Neonat Total Bilirubin Not Reportable Neonat Direct Bilirubin Not Reportable Neonat Indirect Bili Not Reportable AST 21 ALT 27 Alkaline Phosphatase 49 Creatine Kinase 44 L CK-MB (CK-2) 1.15 Troponin I < 0.012 NT-Pro-B Natriuret Pep 19320 H Total Protein 6.5 Albumin 3.6 08/28/18 21:53 WBC RBC Hgb Hct MCV MCH MCHC RDW Plt Count Total Counted Seg Neutrophils % Seg Neuts % (Manual) Lymphocytes % Lymphocytes % (Manual) Monocytes % Monocytes % (Manual) Eosinophils % Eosinophils % (Manual) Basophils % Basophils % (Manual) Absolute Neutrophils Abs Neuts (Manual) Absolute Lymphocytes Abs Lymphs (Manual) Absolute Monocytes Abs Monocytes (Manual) Absolute Eosinophils Absolute Eos (Manual) Absolute Basophils Abs Basophils (Manual) Platelet Comment Polychromasia VBG pH 7.48 H VBG pCO2 31.6 L VBG HCO3 22.9 VBG Base Excess -0.2 Sodium Potassium Chloride Carbon Dioxide Anion Gap BUN Creatinine Est GFR ( Amer) Est GFR (Non-Af Amer) Glucose Calcium Total Bilirubin Direct Bilirubin Neonat Total Bilirubin Neonat Direct Bilirubin Neonat Indirect Bili AST ALT Alkaline Phosphatase Creatine Kinase CK-MB (CK-2) Troponin I NT-Pro-B Natriuret Pep Total Protein Albumin Chest X-Ray 08/28/18 21:30 IMPRESSION: Cardy with central pulmonary vascular prominence and patchy opacification the bilateral air space raising the concern for edema versus multifocal pneumonia. Please correlate with patient clinical findings and consider follow-up for resolution. copyright 2010 [employer]- All Rights Reserved Chest CT 08/28/18 23:05 IMPRESSION: 1. Findings most compatible with bilateral pulmonary edema and small bilateral pleural effusions. 2. No lobar airspace opacity to suggest lobar pneumonia however given diffuse patchy alveolar and groundglass opacities underlying infectious or inflammatory process superimposed on pulmonary edema cannot be excluded. Continued radiographic follow-up to resolution recommended. 3. Cardiomegaly with coronary artery atherosclerosis. This exam was performed according to our departmental dose-optimization program, which includes automated exposure control, adjustment of the mA and/or kV according to patient size and/or use of iterative reconstruction technique. Temp Pulse Resp BP Pulse Ox 98.9 F 30 H 120/59 L 96 08/29/18 00:00 08/29/18 00:01 08/29/18 00:01 08/29/18 00:35 78-year-old male with coronary artery disease, congestive heart failure presents with complaint of shortness of breath. Upon arrival patient is tachypneic, hypoxic and in respiratory distress. Family reports the patient was recently admitted to [facility] for chest pain and underwent a cardiac catheterization but did not require stent placement. Bedside ultrasound was performed and showed no pericardial effusion but did show diffuse B-lines in all lung last consistent with interstitial edema. Patient was placed on BiPAP, Nitropaste was placed and Lasix was administered. CBC does show an anemia. CMP shows worsening renal function. CT of the chest shows pulmonary edema, small bilateral pleural effusion. On reevaluation patient is resting comfortably on BiPAP. I did speak to the hospitalist Dr. Bianchi who has agreed to admit the patient. 08/29/18 02:20 - Vital Signs Vital signs: Temp Pulse Resp BP Pulse Ox 98.9 F 30 H 120/59 L 96 08/29/18 00:00 08/29/18 00:01 08/29/18 00:01 08/29/18 00:35 - Laboratory Result Diagrams: 08/28/18 21:53 08/28/18 21:53 Laboratory results interpreted by me: 08/28/18 08/28/18 08/28/18 21:53 21:53 21:53 WBC 10.7 H RBC 2.72 L Hgb 8.7 L Hct 25.2 L RDW 15.0 H Seg Neuts % (Manual) 84 H Lymphocytes % (Manual) 12 L Abs Neuts (Manual) 9.0 H VBG pH VBG pCO2 Sodium 136.2 L BUN 35 H Creatinine 2.42 H Est GFR ( Amer) 31 L Est GFR (Non-Af Amer) 26 L Glucose 124 H Creatine Kinase 44 L NT-Pro-B Natriuret Pep 04881 H 08/28/18 21:53 WBC RBC Hgb Hct RDW Seg Neuts % (Manual) Lymphocytes % (Manual) Abs Neuts (Manual) VBG pH 7.48 H VBG pCO2 31.6 L Sodium BUN Creatinine Est GFR ( Amer) Est GFR (Non-Af Amer) Glucose Creatine Kinase NT-Pro-B Natriuret Pep - Diagnostic Test Radiology reviewed: Image reviewed, Reports reviewed - EKG Interpretation by Me When compared to previous EKG there are: No significant change Discharge - Discharge Clinical Impression: Hypoxia, Pulmonary vascular congestion CHF, acute on chronic Qualifiers: Heart failure type: unspecified Qualified Code(s): I50.9 - Heart failure, uns pecified Acute renal failure Qualifiers: Acute renal failure type: unspecified Qualified Code(s): N17.9 - Acute kidney failure, unspecified Condition: Good Disposition: ADMITTED INPATIENT Admitting Provider: Arias (Hospitalist) Unit Admitted: Medical Floor
[2018-08-28 22:09] LABS: VENOUS BLOOD BASE EXCESS -0.2 mmol/L; VENOUS BLOOD HCO3 22.9 mmol/L (20-32); VENOUS BLOOD PCO2 31.6 mmHg (35-63); VENOUS BLOOD PH 7.48 (7.30-7.42)
--- NOTE | 2018-08-28 22:14 | RADIOLOGY REPORT (SQ) ---
EXAM DESCRIPTION: XR CHEST 1 VIEW COMPLETED DATE/TME: 08/28/2018 21:30 CLINICAL HISTORY: 78 years, Male, shortness of breath COMPARISON: 07/17/2017. NUMBER OF VIEWS: 1 TECHNIQUE: Single view, AP portable chest was obtained. LIMITATIONS: None. FINDINGS: Stable enlarged cardiac mediastinal silhouette with cardiomegaly and tortuous thoracic aorta. Pacemaker device overlies and obscures portions of the the LEFT hemithorax with leads intact at the level of the battery pack, stable in course and termination. Central pulmonary vascular prominence with patchy opacification the bilateral air space raising the concern for edema versus multifocal pneumonia. No, pneumothorax or pleural effusions. The visualized bones are within normal limits. IMPRESSION: Cardy with central pulmonary vascular prominence and patchy opacification the bilateral air space raising the concern for edema versus multifocal pneumonia. Please correlate with patient clinical findings and consider follow-up for resolution. copyright 2010 [employer]- All Rights Reserved
[2018-08-28 22:15] LABS: HEMATOCRIT 25.2 % (37.9-51.0); HEMOGLOBIN 8.7 g/dL (13.5-17.0); MEAN CORPUSCULAR HGB CONC 34.5 g/dL (32.0-36.0); MEAN CORPUSCULAR VOLUME 93 fl (80-97); PLATELET COUNT 256 10^3/uL (150-450); RED BLOOD COUNT 2.72 10^6/uL (4.35-5.55); WHITE BLOOD COUNT 10.7 10^3/uL (4.0-10.5)
[2018-08-28 22:21] LABS: ALANINE AMINOTRANSFERASE 27 U/L (21-72); ALBUMIN 3.6 g/dL (3.5-5.0); ALKALINE PHOSPHATASE 49 U/L (38-126); ANION GAP 13 (5-19); ASPARTATE AMINO TRANSFERASE 21 U/L (17-59); BILIRUBIN,DIRECT 0.4 mg/dL (0.0-0.4); BILIRUBIN,TOTAL 0.8 mg/dL (0.2-1.3); BLOOD UREA NITROGEN 35 mg/dL (7-20); CARBON DIOXIDE 24 mmol/L (22-30); CHLORIDE 99 mmol/L (98-107); CREATINE KINASE 44 U/L (55-170); GLUCOSE 124 mg/dL (75-110); POTASSIUM 4.2 mmol/L (3.6-5.0); SODIUM 136.2 mmol/L (137-145); TOTAL PROTEIN 6.5 g/dL (6.3-8.2)
[2018-08-28] MEDS ORDERED: AZTREONAM INJ 1 GM VIAL IV ONE (22:30)
[2018-08-28 22:32] LABS: BASOPHILS % (MANUAL) 0 % (0-2); EOSINOPHILS % (MANUAL) 0 % (0-6); SEGMENTED NEUTROPHILS % (MAN) 84 % (42-78); TOTAL CELLS COUNTED 100
[2018-08-28 22:33] LABS: ABSOLUTE LYMPHOCYTES# (MANUAL) 1.3 10^3/uL (0.5-4.7); ABSOLUTE MONOCYTES # (MANUAL) 0.4 10^3/uL (0.1-1.4); CREATINE KINASE MB 1.15 ng/mL (<4.55); LYMPHOCYTES % (MANUAL) 12 % (13-45); MONOCYTES % (MANUAL) 4 % (3-13); NT PRO BNP 13000 pg/mL (<450)
[2018-08-28 22:35] LABS: PLATELET COMMENT ADEQUATE; TROPONIN I < 0.012 ng/mL
[2018-08-28 22:36] LABS: POLYCHROMASIA SLIGHT
--- NOTE | 2018-08-28 23:58 | RADIOLOGY REPORT (SQ) ---
EXAM DESCRIPTION: CT CHEST WITHOUT IV CONTRAST COMPLETED DATE/TME: 08/28/2018 23:05 CLINICAL HISTORY: pneumonia COMPARISON: None Available. TECHNIQUE: Axial CT images of the chest without IV contrast obtained from the thoracic inlet through the diaphragm. Coronal and sagittal reformatted images available. DLP: 873.2 mGy-cm FINDINGS: Chest: Thyroid:No abnormalities of the visualized thyroid. Great Vessels:Great vessels have normal anatomic configuration. Thoracic Aorta: Atherosclerotic calcification of the thoracic aorta. Pulmonary arteries: Dilation of the main pulmonary artery. This could be seen with pulmonary arterial hypertension. Heart: Cardiomegaly and coronary artery atherosclerosis. Prior median sternotomy. left-sided dual-lead pacemaker. Lymph Nodes: Enlarged right paratracheal lymph nodes. Esophagus: Small hiatal hernia. Other:No additional findings. Lungs: Diffuse patchy alveolar and groundglass opacities throughout the lungs bilaterally as well as mild interlobular septal thickening. No confluent lobar airspace consolidation. Pleura: Small bilateral pleural effusions. No pneumothorax. Trachea/Airways: No acute abnormalities of the trachea. Bones: Mild degenerative change of the thoracic spine. Upper Abdomen:Limited images of the upper abdomen demonstrate no definite abnormalities of visualized portions of the liver, pancreas, spleen, adrenal glands, or kidneys. Prior cholecystectomy. IMPRESSION: 1. Findings most compatible with bilateral pulmonary edema and small bilateral pleural effusions. 2. No lobar airspace opacity to suggest lobar pneumonia however given diffuse patchy alveolar and groundglass opacities underlying infectious or inflammatory process superimposed on pulmonary edema cannot be excluded. Continued radiographic follow-up to resolution recommended. 3. Cardiomegaly with coronary artery atherosclerosis. This exam was performed according to our departmental dose-optimization program, which includes automated exposure control, adjustment of the mA and/or kV according to patient size and/or use of iterative reconstruction technique.
[2018-08-29] MEDS ORDERED: ONDANSETRON HCL INJ/PF 4 MG/2 ML SDV IV PRN (00:06)
[2018-08-29] MEDS ORDERED: MAGNESIUM HYDROXIDE SUSP 30 ML UDCUP PO PRN (00:06)
[2018-08-29] MEDS ORDERED: TEMAZEPAM 7.5 MG CAPSULE PO PRN (00:06)
[2018-08-29] MEDS ORDERED: MAG HYDROX/AL HYDROX/SIMETH SUSP 30 ML UDCUP PO PRN (00:06)
[2018-08-29 00:15] LABS: APPEARANCE,URINE CLEAR; BILIRUBIN,URINE NEGATIVE (NEGATIVE); COLOR,URINE YELLOW; GLUCOSE, URINE NEGATIVE (NEGATIVE); KETONES,URINE NEGATIVE (NEGATIVE); LEUKOCYTE ESTERASE,URINE NEGATIVE (NEGATIVE); NITRITE,URINE NEGATIVE (NEGATIVE); PROTEIN,URINE NEGATIVE (NEGATIVE); UROBILINOGEN,URINE NEGATIVE mg/dL (<2.0)
[2018-08-29] MEDS ORDERED: ACETAMINOPHEN 325 MG TABLET PO PRN (00:16)
[2018-08-29] MEDS ORDERED: HYDRALAZINE HCL INJ/PF 20 MG/1 ML SDV IV PRN (00:16)
[2018-08-29] MEDS ORDERED: MORPHINE SULFATE 10 MG/ML INJ IV PRN ×2 (00:16)
--- NOTE | 2018-08-29 02:37 | PDOC H&P ---
History of Present Illness Admission Date/PCP: 08/28/18 23:31 MINA GARCIA MD Patient complains of: Dyspnea History of Present Illness: ENRIQUETA BRINK is a 78 year old male who presented to the emergency room with a 1 day history of dyspnea. He admits that his constant dyspnea began 1 day prior to admission and gradually worsened to the point where now it is moderately severe. His dyspnea has been accompanied by increased swelling in his lower extremities and a nonproductive cough. His dyspnea is worsened by any exertion and he has not identified any ameliorating factors. He admits prior significantly lessor but similar symptoms with past heart problems. In the emergency room he was found to have an elevated BNP at 13,000 and a chest x-ray consistent with congestive heart failure and mild pulmonary edema. Additionally was noted to have significant hypoxia on O2 sat monitoring (86% on room air) and an increase from his prior creatinine level of 1.6 to his current level of 2.4. He required BiPAP for relief of his dyspnea in the emergency room. With these findings patient was admitted to the hospital for further evaluation and treatment. Past Medical History Cardiac Medical History: Reports: Atrial Fibrillation, Congestive Heart Failure, Coronary Artery Disease, Myocardial Infarction - 1991, Hyperlipidema, Other - Recently increased his Lasix dose to 80 mg twice a day Denies: Hypertension Pulmonary Medical History: Reports: Chronic Obstructive Pulmonary Disease (COPD) Denies: Asthma EENT Medical History: Denies: Cataracts, Eyes - Corrective lenses have been prescribed Neurological Medical History: Denies: Hemorrhagic CVA, Ischemic CVA, Seizures Endocrine Medical History: Denies: Diabetes Mellitus Type 1, Diabetes Mellitus Type 2, Hyperthyroidism, Hypothyroidism Renal/ Medical History: Reports: Other - Benign prostatic hypertrophy Denies: Chronic Kidney Disease, Nephrolithiasis Malignancy Medical History: Reports: None GI Medical History: Reports: Hiatal Hernia Denies: Cirrhosis, Hepatitis Musculoskeltal Medical History: Reports: Arthritis Denies: Gout Skin Medical History: Denies: Eczema, Psoriasis Psychiatric Medical History: Denies: Alcohol Dependency, Substance Abuse, Tobacco Dependency Traumatic Medical History: Reports: None Hematology: Reports: Other - On chronic anticoagulation with Eliquis Denies: Anemia, Bleeding Tendencies Infectious Medical History: Reports: None Past Surgical History Past Surgical History: Reports: Cardiac Catheterization, Coronary Artery Bypass Graft, Internal Defibrillator - Internal defibrillator pacemaker combination, Pacemaker - Internal defibrillator pacemaker examination Social History Information Source: Patient Lives with: Family Smoking Status: Former Smoker Frequency of Alcohol Use: None Hx Recreational Drug Use: No Drugs: None Hx Prescription Drug Abuse: No Past Social History Note: Tanika Montague his daughter Family History Parental Family History Reviewed: Yes Children Family History Reviewed: No Sibling(s) Family History Reviewed.: Yes Medication/Allergy Home Medications: Alfuzosin HCl [Alfuzosin HCl ER] 10 mg PO DAILY 01/06/16 Captopril [Capoten 25 mg Tablet] 25 mg PO Q12 01/06/16 Cetirizine HCl [Zyrtec 10 mg Tablet] 10 mg PO DAILY 01/06/16 Ranitidine HCl [Zantac 150 mg Tablet] 150 mg PO BID 01/06/16 Apixaban [Eliquis 5 mg Tablet] 5 mg PO Q12 07/18/17 Aspirin [Aspirin EC] 81 mg PO DAILY 07/18/17 Furosemide [Lasix 40 mg Tablet] 60 mg PO BID 07/18/17 [place]-3 Acid Ethyl Esters [Lovaza 1 gm Capsule] 1 gm PO TID 07/18/17 Potassium Chloride [Klor-Con 10 Meq Capsule ER] 10 meq PO DAILY 07/18/17 Rosuvastatin Calcium [Crestor 20 mg Tablet] 20 mg PO QHS 07/18/17 Sotalol HCl [Betapace 80 mg Tablet] 80 mg PO Q12 07/18/17 Allergies/Adverse Reactions: Penicillins Allergy (Verified 07/17/17 20:26) Generalized rash Review of Systems Constitutional: ABSENT: chills, fever(s) Eyes: ABSENT: visual disturbances, other - Ocular pain Ears: ABSENT: hearing changes, other - Ear pain Nose, Mouth, and Throat: ABSENT: mouth pain, sore throat Cardiovascular: PRESENT: as per HPI, dyspnea on exertion, edema. ABSENT: chest pain, orthropnea, palpitations Respiratory: PRESENT: as per HPI, cough, dyspnea. ABSENT: sputum Gastrointestinal: ABSENT: abdominal pain, constipation, diarrhea, nausea, vomiting Genitourinary: ABSENT: dysuria, hematuria Integumentary: ABSENT: pruritus, rash Neurological: ABSENT: confusion, convulsions, focal weakness, memory loss, syncope Psychiatric: ABSENT: anxiety, depression Endocrine: ABSENT: cold intolerance, heat intolerance Hematologic/Lymphatic: ABSENT: easy bleeding, easy bruising Physical Exam Vital Signs: Temp Pulse Resp BP Pulse Ox 26 H 88 L 08/28/18 21:55 08/28/18 21:58 General appearance: PRESENT: no acute distress, cooperative Head exam: PRESENT: atraumatic, normocephalic Eye exam: ABSENT: conjunctival injection, scleral icterus Ear exam: PRESENT: normal external ear exam. ABSENT: bleeding, drainage Mouth exam: PRESENT: dry mucosa, neck supple Neck exam: ABSENT: thyromegaly, tracheal deviation Respiratory exam: PRESENT: rales - Bibasilar rales noted, symmetrical, tachypnea Cardiovascular exam: PRESENT: gallop - S4 gallop rhythm, RRR. ABSENT: clicks, rubs Pulses: PRESENT: normal radial pulses, normal dorsalis pedis pul Vascular exam: PRESENT: normal capillary refill. ABSENT: pallor GI/Abdominal exam: PRESENT: normal bowel sounds, soft Rectal exam: PRESENT: deferred Extremities exam: PRESENT: pedal edema - Bilateral, +2 edema - 2+ bilateral pretibial edema. ABSENT: joint swelling Musculoskeletal exam: ABSENT: deformity, dislocation Neurological exam: PRESENT: alert, oriented to person, oriented to place, oriented to time, oriented to situation, CN II-XII grossly intact. ABSENT: motor sensory deficit Psychiatric exam: PRESENT: appropriate affect, normal mood Skin exam: PRESENT: dry, intact, warm. ABSENT: jaundice, rash, urticaria Results Laboratory Results: 08/28/18 21:53 08/28/18 21:53 08/28/18 08/28/18 08/28/18 21:53 21:53 21:53 WBC 10.7 H RBC 2.72 L Hgb 8.7 L Hct 25.2 L MCV 93 MCH 32.0 MCHC 34.5 RDW 15.0 H Plt Count 256 Seg Neutrophils % Not Reportable Lymphocytes % Not Reportable Monocytes % Not Reportable Eosinophils % Not Reportable Basophils % Not Reportable Absolute Neutrophils Not Reportable Absolute Lymphocytes Not Reportable Absolute Monocytes Not Reportable Absolute Eosinophils Not Reportable Absolute Basophils Not Reportable VBG pH 7.48 H VBG pCO2 31.6 L VBG HCO3 22.9 VBG Base Excess -0.2 Sodium 136.2 L Potassium 4.2 Chloride 99 Carbon Dioxide 24 Anion Gap 13 BUN 35 H Creatinine 2.42 H Est GFR ( Amer) 31 L Est GFR (Non-Af Amer) 26 L Glucose 124 H Calcium 9.0 Total Bilirubin 0.8 AST 21 ALT 27 Alkaline Phosphatase 49 Total Protein 6.5 Albumin 3.6 08/28/18 08/28/18 21:53 21:53 Creatine Kinase 44 L CK-MB (CK-2) 1.15 Troponin I < 0.012 NT-Pro-B Natriuret Pep [id number] H Impressions: Chest X-Ray 08/28/18 21:30 IMPRESSION: Cardy with central pulmonary vascular prominence and patchy opacification the bilateral air space raising the concern for edema versus multifocal pneumonia. Please correlate with patient clinical findings and consider follow-up for resolution. copyright 2010 [employer]- All Rights Reserved Assessment and Plan - Diagnosis (1) Acute respiratory failure with hypoxia Is this a current diagnosis for this admission?: Yes Plan: Patient be treated with supplemental oxygen and other invasive/noninvasive respiratory support methods if required. Recheck ABGs at 0600 on 08/29/2018. (2) Acute on chronic combined systolic and diastolic CHF (congestive heart failure) Is this a current diagnosis for this admission?: Yes Plan: Patient be treated with diuretic therapy and medication adjustment. He will use morphine sulfate 1 mg IV q. one hour as needed to control severe dyspnea due to congestive heart failure. Additionally nitroglycerin paste and other acute measures to be applied. Continued clinical reassessments on a regular basis will be made. (3) Acute renal failure superimposed on stage 3 chronic kidney disease Qualifiers: Acute renal failure type: unspecified Qualified Code(s): N17.9 - Acute kidney failure, unspecified; N18.3 - Chronic kidney disease, stage 3 (moderate) Is this a current diagnosis for this admission?: Yes Plan: Patient will be treated with gentle diuresis and avoidance of all nephrotoxic agents. Specifically his captopril will be discontinued and losartan will be used as a replacement. (4) CAD (coronary artery disease) Qualifiers: Coronary Disease-Associated Artery/Lesion type: [place] artery Associated angina: without angina Is this a current diagnosis for this admission?: Yes Plan: Patient will be continued on his usual medication for coronary artery disease with adjustments made for his acute on chronic congestive heart failure as well as his acute on chronic renal insufficiency. (5) Hyperlipidemia Qualifiers: Hyperlipidemia type: unspecified Qualified Code(s): E78.5 - Hyperlipidemia, unspecified Is this a current diagnosis for this admission?: Yes Plan: Patient will have a lipid profile performed to evaluate his lipid status. It would appear that he is no longer taking a statin agent at this time. - Time Time Spent with patient: 25-34 minutes Anticipated discharge: Home - Inpatient Certification Based on my medical assessment, after consideration of the patient's comorbidities, presenting symptoms, or acuity I expect that the services needed warrant INPATIENT care.: Yes I certify that my determination is in accordance with my understanding of Medicare's requirements for reasonable and necessary INPATIENT services [42 CFR 412.3e].: Yes Medical Necessity: Significant Comorbidiites Make Outpatient Treatment Too Risky, Need Close Monitoring Due to Risk of Patient Decompensation, Risk of Com plication if Not Cared For in Hospital, Other - Need for oxygen supplementation
[2018-08-29 04:16] LABS: HEMATOCRIT 23.5 % (37.9-51.0); MEAN CORPUSCULAR HEMOGLOBIN 31.2 pg (27.0-33.4); MEAN CORPUSCULAR HGB CONC 33.8 g/dL (32.0-36.0); MEAN CORPUSCULAR VOLUME 92 fl (80-97); PLATELET COUNT 241 10^3/uL (150-450); RED BLOOD COUNT 2.54 10^6/uL (4.35-5.55); RED CELL DISTRIBUTION WIDTH 15.1 % (11.5-14.0)
[2018-08-29 04:17] LABS: HEMOGLOBIN 7.9 g/dL (13.5-17.0)
[2018-08-29 04:27] LABS: ANION GAP 13 (5-19); BLOOD UREA NITROGEN 33 mg/dL (7-20); CALCIUM 8.8 mg/dL (8.4-10.2); CARBON DIOXIDE 25 mmol/L (22-30); CHLORIDE 102 mmol/L (98-107); CHOLESTEROL 152.24 mg/dL (0-200); GLUCOSE 117 mg/dL (75-110); POTASSIUM 3.7 mmol/L (3.6-5.0); SODIUM 139.6 mmol/L (137-145); TRIGLYCERIDES 119 mg/dL (<150)
[2018-08-29 04:37] LABS: DIRECT LDL 88 mg/dL (<100)
[2018-08-29 04:50] LABS: FREE T3 2.26 pg/mL (2.77-5.27); FREE T4 (FREE THYROXINE) 1.42 ng/dL (0.78-2.19)
[2018-08-29 05:04] LABS: THYROID STIMULATING HORMONE 2.71 uIU/mL (0.47-4.68)
[2018-08-29] MEDS ORDERED: HEPARIN SOD (PORCINE) 5,000 UNIT/ML 1 ML SYRINGE SUBCUT SCH (06:00)
[2018-08-29 06:52] LABS: ARTERIAL BLOOD BASE EXCESS 1.8 mmol/L; ARTERIAL BLOOD H2CO3 0.99 mmol/L (1.05-1.35); ARTERIAL BLOOD HCO3 24.8 mmol/L (20-24); ARTERIAL BLOOD O2 SATURATION 97.5 % (94-98); ARTERIAL BLOOD PH 7.49 (7.35-7.45); ARTERIAL BLOOD PO2 89.4 mmHg (80-100); ARTERIAL BLOOD TOTAL CO2 25.8 mmol/L (23-27)
[2018-08-29 06:53] LABS: ARTERIAL BLOOD FIO2 40%
[2018-08-29] MEDS: PANTOPRAZOLE SODIUM 40 MG TABLET.DR PO SCH (07:19)
--- NOTE | 2018-08-29 07:45 | EKG REPORT ---
SEVERITY:- ABNORMAL ECG - ATRIAL-SENSED VENTRICULAR-PACED RHYTHM : Confirmed by: Osvaldo Fong MD 29-Aug-2018 07:45:23
[2018-08-29] MEDS: LEVALBUTEROL HCL NEB 1.25 MG/3 ML AMPUL NEB SCH ×2 (08:23→15:54)
[2018-08-29] MEDS: BUDESONIDE NEB 0.5 MG/2 ML AMPUL NEB SCH ×2 (08:23→20:24)
[2018-08-29] MEDS: IPRATROPIUM BROMIDE 0.02% NEB 0.5 MG/2.5 ML AMPUL NEB SCH ×2 (08:24→15:54)
[2018-08-29] MEDS: METOPROLOL SUCCINATE 25 MG TAB.SR.24H PO SCH (09:31)
[2018-08-29] MEDS: DOCUSATE SODIUM 100 MG CAPSULE PO SCH ×2 (09:31→17:26)
[2018-08-29] MEDS: SPIRONOLACTONE 25 MG TABLET PO SCH (09:31)
[2018-08-29] MEDS: LOSARTAN POTASSIUM 25 MG TABLET PO SCH (09:31)
[2018-08-29] MEDS: APIXABAN 2.5 MG TABLET PO SCH ×2 (09:31→17:26)
[2018-08-29] MEDS ORDERED: TORSEMIDE 20 MG TABLET PO SCH ×2 (10:00)
[2018-08-29] MEDS ORDERED: (PENDING PHARMACY ID) (Alfuzosin Hcl [Alfuzosin Hcl Er] 10 MG) PO SCH (10:00)
[2018-08-29] MEDS ORDERED: HYDROCODONE BIT/HOMATROPINE 5-1.5 MG TABLET PO PRN (12:14)
[2018-08-29] MEDS ORDERED: FUROSEMIDE INJ/PF 20 MG/2 ML SDV IV ONE ×2 (12:30→15:00)
[2018-08-29 14:52] LABS: ABSOLUTE BASOPHILS # (AUTO) 0.1 10^3/uL (0.0-0.2); ABSOLUTE LYMPHOCYTES (AUTO) 0.7 10^3/uL (0.5-4.7); ABSOLUTE MONOCYTES (AUTO) 0.6 10^3/uL (0.1-1.4); ABSOLUTE NEUT (AUTO) 10.1 10^3/uL (1.7-8.2); BASOPHILS % (AUTO) 0.7 % (0-2); EOSINOPHILS % (AUTO) 0.1 % (0-6); HEMATOCRIT 26.6 % (37.9-51.0); HEMOGLOBIN 8.9 g/dL (13.5-17.0); MEAN CORPUSCULAR HEMOGLOBIN 30.7 pg (27.0-33.4); MEAN CORPUSCULAR HGB CONC 33.6 g/dL (32.0-36.0); MEAN CORPUSCULAR VOLUME 92 fl (80-97); MONOCYTES % (AUTO) 5.4 % (3-13); PLATELET COUNT 254 10^3/uL (150-450); RED BLOOD COUNT 2.91 10^6/uL (4.35-5.55); RED CELL DISTRIBUTION WIDTH 15.5 % (11.5-14.0); SEGMENTED NEUTROPHILS % (AUTO) 87.8 % (42-78); TOTAL CELLS COUNTED % (AUTO) 100 %; WHITE BLOOD COUNT 11.5 10^3/uL (4.0-10.5)
--- NOTE | 2018-08-29 16:47 | PDOC PROGRESS REPORT ---
Subjective Progress Note for:: 08/29/18 Subjective:: No adverse events overnight. Breathing has improved some since he came in, but he still has some shortness of breath. Urine output has not really been that impressive considering the dose of diuretics he is gotten. He did get some blood this morning because of his low hemoglobin. Reason For Visit: ACUTE RESPIRATORY FAILURE WITH HYPOXIA, AND ACUTE Physical Exam Vital Signs: Temp Pulse Resp BP Pulse Ox 98.6 F 75 22 H 124/43 L 95 08/29/18 10:20 08/29/18 15:56 08/29/18 15:56 08/29/18 10:20 08/29/18 15:56 Intake & Output 08/28/18 08/29/18 08/30/18 06:59 06:59 06:59 Intake Total 260 300 Output Total 200 Balance 60 300 Weight 75.2 kg General appearance: PRESENT: cooperative, disheveled, mild distress Respiratory exam: PRESENT: accessory muscle use, crackles, symmetrical. ABSENT: prolonged expiratory phas, rhonchi, tachypnea, unlabored, wheezes Cardiovascular exam: PRESENT: RRR Pulses: PRESENT: normal carotid pulses Vascular exam: PRESENT: normal capillary refill GI/Abdominal exam: PRESENT: normal bowel sounds, soft. ABSENT: distended, guarding, rebound, tenderness Extremities exam: PRESENT: +1 edema. ABSENT: clubbing, pedal edema Musculoskeletal exam: PRESENT: normal inspection. ABSENT: deformity Neurological exam: PRESENT: alert, awake, oriented to person, oriented to place, oriented to time, oriented to situation Psychiatric exam: PRESENT: anxious Skin exam: PRESENT: dry, warm Results Laboratory Results: 08/29/18 14:38 08/29/18 03:55 08/28/18 08/28/18 08/28/18 21:53 21:53 21:53 WBC 10.7 H RBC 2.72 L Hgb 8.7 L Hct 25.2 L MCV 93 MCH 32.0 MCHC 34.5 RDW 15.0 H Plt Count 256 Seg Neutrophils % Not Reportable Lymphocytes % Not Reportable Monocytes % Not Reportable Eosinophils % Not Reportable Basophils % Not Reportable Absolute Neutrophils Not Reportable Absolute Lymphocytes Not Reportable Absolute Monocytes Not Reportable Absolute Eosinophils Not Reportable Absolute Basophils Not Reportable Carbonic Acid HCO3/H2CO3 Ratio ABG pH ABG pCO2 ABG pO2 ABG HCO3 ABG O2 Saturation ABG Base Excess VBG pH 7.48 H VBG pCO2 31.6 L VBG HCO3 22.9 VBG Base Excess -0.2 FiO2 Sodium 136.2 L Potassium 4.2 Chloride 99 Carbon Dioxide 24 Anion Gap 13 BUN 35 H Creatinine 2.42 H Est GFR ( Amer) 31 L Est GFR (Non-Af Amer) 26 L Glucose 124 H Calcium 9.0 Magnesium Total Bilirubin 0.8 AST 21 ALT 27 Alkaline Phosphatase 49 Total Protein 6.5 Albumin 3.6 Triglycerides Cholesterol LDL Cholesterol Direct VLDL Cholesterol HDL Cholesterol TSH Free T4 Free T3 pg/mL Urine Color Urine Appearance Urine pH Ur Specific [place] Urine Protein Urine Glucose (UA) Urine Ketones Urine Blood Urine Nitrite Ur Leukocyte Esterase Urine WBC (Auto) Urine RBC (Auto) Blood Type Antibody Screen 08/28/18 08/29/18 08/29/18 23:44 03:55 03:55 WBC 10.0 RBC 2.54 L Hgb 7.9 L Hct 23.5 L MCV 92 MCH 31.2 MCHC 33.8 RDW 15.1 H Plt Count 241 Seg Neutrophils % Lymphocytes % Monocytes % Eosinophils % Basophils % Absolute Neutrophils Absolute Lymphocytes Absolute Monocytes Absolute Eosinophils Absolute Basophils Carbonic Acid HCO3/H2CO3 Ratio ABG pH ABG pCO2 ABG pO2 ABG HCO3 ABG O2 Saturation ABG Base Excess VBG pH VBG pCO2 VBG HCO3 VBG Base Excess FiO2 Sodium 139.6 Potassium 3.7 Chloride 102 Carbon Dioxide 25 Anion Gap 13 BUN 33 H Creatinine 2.33 H Est GFR ( Amer) 33 L Est GFR (Non-Af Amer) 27 L Glucose 117 H Calcium 8.8 Magnesium 2.2 Total Bilirubin AST ALT Alkaline Phosphatase Total Protein Albumin Triglycerides 119 Cholesterol 152.24 LDL Cholesterol Direct 88 VLDL Cholesterol 24.0 HDL Cholesterol 34 L TSH Free T4 Free T3 pg/mL Urine Color YELLOW Urine Appearance CLEAR Urine pH 6.0 Ur Specific [place] 1.010 Urine Protein NEGATIVE Urine Glucose (UA) NEGATIVE Urine Ketones NEGATIVE Urine Blood NEGATIVE Urine Nitrite NEGATIVE Ur Leukocyte Esterase NEGATIVE Urine WBC (Auto) 0 Urine RBC (Auto) 0 Blood Type Antibody Screen 08/29/18 08/29/18 08/29/18 03:55 06:36 06:45 WBC RBC Hgb Hct MCV MCH MCHC RDW Plt Count Seg Neutrophils % Lymphocytes % Monocytes % Eosinophils % Basophils % Absolute Neutrophils Absolute Lymphocytes Absolute Monocytes Absolute Eosinophils Absolute Basophils Carbonic Acid 0.99 L HCO3/H2CO3 Ratio 25:1 ABG pH 7.49 H ABG pCO2 33.0 L ABG pO2 89.4 ABG HCO3 24.8 H ABG O2 Saturation 97.5 ABG Base Excess 1.8 VBG pH VBG pCO2 VBG HCO3 VBG Base Excess FiO2 40% Sodium Potassium Chloride Carbon Dioxide Anion Gap BUN Creatinine Est GFR ( Amer) Est GFR (Non-Af Amer) Glucose Calcium Magnesium Total Bilirubin AST ALT Alkaline Phosphatase Total Protein Albumin Triglycerides Cholesterol LDL Cholesterol Direct VLDL Cholesterol HDL Cholesterol TSH 2.71 Free T4 1.42 Free T3 pg/mL 2.26 L Urine Color Urine Appearance Urine pH Ur Specific [place] Urine Protein Urine Glucose (UA) Urine Ketones Urine Blood Urine Nitrite Ur Leukocyte Esterase Urine WBC (Auto) Urine RBC (Auto) Blood Type A POSITIVE Antibody Screen NEGATIVE 08/29/18 14:38 WBC 11.5 H RBC 2.91 L Hgb 8.9 L Hct 26.6 L MCV 92 MCH 30.7 MCHC 33.6 RDW 15.5 H Plt Count 254 Seg Neutrophils % 87.8 H Lymphocytes % 6.0 L Monocytes % 5.4 Eosinophils % 0.1 Basophils % 0.7 Absolute Neutrophils 10.1 H Absolute Lymphocytes 0.7 Absolute Monocytes 0.6 Absolute Eosinophils 0.0 Absolute Basophils 0.1 Carbonic Acid HCO3/H2CO3 Ratio ABG pH ABG pCO2 ABG pO2 ABG HCO3 ABG O2 Saturation ABG Base Excess VBG pH VBG pCO2 VBG HCO3 VBG Base Excess FiO2 Sodium Potassium Chloride Carbon Dioxide Anion Gap BUN Creatinine Est GFR ( Amer) Est GFR (Non-Af Amer) Glucose Calcium Magnesium Total Bilirubin AST ALT Alkaline Phosphatase Total Protein Albumin Triglycerides Cholesterol LDL Cholesterol Direct VLDL Cholesterol HDL Cholesterol TSH Free T4 Free T3 pg/mL Urine Color Urine Appearance Urine pH Ur Specific [place] Urine Protein Urine Glucose (UA) Urine Ketones Urine Blood Urine Nitrite Ur Leukocyte Esterase Urine WBC (Auto) Urine RBC (Auto) Blood Type Antibody Screen 08/28/18 08/28/18 08/29/18 21:53 21:53 03:55 Creatine Kinase 44 L CK-MB (CK-2) 1.15 Troponin I < 0.012 < 0.012 NT-Pro-B Natriuret Pep [id number] H 08/29/18 11:31 Creatine Kinase CK-MB (CK-2) Troponin I 0.014 NT-Pro-B Natriuret Pep Impressions: Chest X-Ray 08/28/18 21:30 IMPRESSION: Cardy with central pulmonary vascular prominence and patchy opacification the bilateral air space raising the concern for edema versus multifocal pneumonia. Please correlate with patient clinical findings and consider follow-up for resolution. copyright 2010 [employer]- All Rights Reserved Chest CT 08/28/18 23:05 IMPRESSION: 1. Findings most compatible with bilateral pulmonary edema and small bilateral pleural effusions. 2. No lobar airspace opacity to suggest lobar pneumonia however given diffuse patchy alveolar and groundglass opacities underlying infectious or inflammatory process superimposed on pulmonary edema cannot be excluded. Continued radiographic follow-up to resolution recommended. 3. Cardiomegaly with coronary artery atherosclerosis. This exam was performed according to our departmental dose-optimization program, which includes automated exposure control, adjustment of the mA and/or kV according to patient size and/or use of iterative reconstruction technique. Assessment and Plan - Diagnosis (1) Acute on chronic combined systolic and diastolic CHF (congestive heart failure) Is this a current diagnosis for this admission?: Yes Plan: I stopped his torsemide and gave him an extra dose of IV Lasix this morning and then another one in the afternoon. We will switch him to 40 mg of IV Lasix twice a day and we will monitor his response. (2) Acute renal failure superimposed on stage 3 chronic kidney disease Qualifiers: Acute renal failure type: unspecified Qualified Code(s): N17.9 - Acute kidney failure, unspecified; N18.3 - Chronic kidney disease, stage 3 (moderate) Is this a current diagnosis for this admission?: Yes Plan: We will have to watch this closely in the setting of his need for diuresis, but it may be that diuresing him actually improves his renal function. He also got packed red blood cells which may help with his renal perfusion. (3) Acute respiratory failure with hypoxia Is this a current diagnosis for this admission?: Yes Plan: Is actually acute on chronic. He said he wears oxygen at home. Currently stable on 3 L per nasal cannula. - Time Time Spent with patient: 25-34 minutes
[2018-08-29] MEDS: FUROSEMIDE INJ/PF 40 MG/4 ML SDV IV SCH (22:29)
[2018-08-30] MEDS: IPRATROPIUM BROMIDE 0.02% NEB 0.5 MG/2.5 ML AMPUL NEB SCH ×4 (00:21→23:54)
[2018-08-30] MEDS: LEVALBUTEROL HCL NEB 1.25 MG/3 ML AMPUL NEB SCH ×4 (00:21→23:54)
[2018-08-30 05:36] LABS: HEMATOCRIT 24.5 % (37.9-51.0); HEMOGLOBIN 8.5 g/dL (13.5-17.0); MEAN CORPUSCULAR HEMOGLOBIN 31.7 pg (27.0-33.4); MEAN CORPUSCULAR HGB CONC 34.8 g/dL (32.0-36.0); MEAN CORPUSCULAR VOLUME 91 fl (80-97); PLATELET COUNT 237 10^3/uL (150-450); RED BLOOD COUNT 2.69 10^6/uL (4.35-5.55); RED CELL DISTRIBUTION WIDTH 15.6 % (11.5-14.0); WHITE BLOOD COUNT 12.6 10^3/uL (4.0-10.5)
[2018-08-30 05:49] LABS: ANION GAP 15 (5-19); BLOOD UREA NITROGEN 29 mg/dL (7-20); CALCIUM 8.8 mg/dL (8.4-10.2); CARBON DIOXIDE 25 mmol/L (22-30); CHLORIDE 101 mmol/L (98-107); GLUCOSE 140 mg/dL (75-110); POTASSIUM 3.3 mmol/L (3.6-5.0); SODIUM 140.7 mmol/L (137-145)
[2018-08-30] MEDS: BUDESONIDE NEB 0.5 MG/2 ML AMPUL NEB SCH ×2 (08:11→21:03)
[2018-08-30] MEDS: PANTOPRAZOLE SODIUM 40 MG TABLET.DR PO SCH (08:59)
[2018-08-30] MEDS: FUROSEMIDE INJ/PF 40 MG/4 ML SDV IV SCH ×2 (09:00→21:43)
[2018-08-30] MEDS: METOPROLOL SUCCINATE 25 MG TAB.SR.24H PO SCH (09:01)
[2018-08-30] MEDS: LOSARTAN POTASSIUM 25 MG TABLET PO SCH (09:02)
[2018-08-30] MEDS: SPIRONOLACTONE 25 MG TABLET PO SCH (09:02)
[2018-08-30] MEDS: APIXABAN 2.5 MG TABLET PO SCH ×2 (09:03→17:52)
[2018-08-30] MEDS: DOCUSATE SODIUM 100 MG CAPSULE PO SCH ×2 (09:03→17:52)
[2018-08-30] MEDS ORDERED: POTASSIUM CHLORIDE 10 MEQ CAPSULE.ER PO ONE (09:45)
[2018-08-30] MEDS ORDERED: MORPHINE SULFATE 10 MG/ML INJ IV PRN ×3 (11:07→11:08)
[2018-08-30] MEDS ORDERED: ONDANSETRON HCL INJ/PF 4 MG/2 ML SDV IV PRN (11:30)
[2018-08-30] MEDS ORDERED: CEFTRIAXONE 1 GM/D5W RTU 1 GM/50 ML RTUPB IV SCH (15:37)
[2018-08-30 16:20] LABS: APPEARANCE,URINE SLIGHTLY-CLOUDY; BILIRUBIN,URINE NEGATIVE (NEGATIVE); COLOR,URINE YELLOW; GLUCOSE, URINE NEGATIVE (NEGATIVE); KETONES,URINE NEGATIVE (NEGATIVE); LEUKOCYTE ESTERASE,URINE NEGATIVE (NEGATIVE); NITRITE,URINE NEGATIVE (NEGATIVE); PROTEIN,URINE NEGATIVE (NEGATIVE); URINE SPECIFIC GRAVITY 1.013; UROBILINOGEN,URINE NEGATIVE mg/dL (<2.0)
--- NOTE | 2018-08-30 17:03 | PDOC PROGRESS REPORT ---
Subjective Progress Note for:: 08/30/18 Subjective:: His oxygen came off earlier this morning and he dropped his SPO2 into the 80s rather rapidly and had to be put on BiPAP. He is been on BiPAP most of the day. Despite that, he still looks better than he has the previous couple of days. His edema has improved. We had a put a Urena catheter in him today for better measurement of urine output. He is been coughing up some thick sputum. He apparently had a fever of 101 F this afternoon but it has not yet been do cumented in the chart. Reason For Visit: ACUTE RESPIRATORY FAILURE WITH HYPOXIA, AND ACUTE Physical Exam Vital Signs: Temp Pulse Resp BP Pulse Ox 98.9 F 76 20 121/50 L 94 08/30/18 08:15 08/30/18 16:43 08/30/18 16:33 08/30/18 08:15 08/30/18 16:33 Pulse Oximeter Continuous Start: 08/30/18 04:48 Freq: RTQ4 Status: Active Protocol: Document 08/30/18 16:33 [facility] (Rec: 08/30/18 16:52 [facility] [id number]) Pulse Oximetry Assessment Oxygen Saturation (92-100) 94 Oxygen Flow Rate (L/min) 5 Oxygen Delivery Method Nasal Cannula Equipment Usage Equipment in Use Continuous SpO2 Machine # 5 Intake & Output 08/29/18 08/30/18 08/31/18 06:59 06:59 06:59 Intake Total 260 778 Output Total 200 550 Balance 60 228 Weight 75.2 kg 76.6 kg General appearance: PRESENT: cooperative, disheveled, mild distress Respiratory exam: PRESENT: crackles - Right lower lobe, tachypnea. ABSENT: accessory muscle use, prolonged expiratory phas, rhonchi, unlabored, wheezes Cardiovascular exam: PRESENT: RRR - 100% V paced on the monitor, +S1, +S2 Pulses: PRESENT: normal carotid pulses Vascular exam: PRESENT: normal capillary refill GI/Abdominal exam: PRESENT: normal bowel sounds, soft. ABSENT: distended, guarding, rebound, tenderness Extremities exam: ABSENT: clubbing, pedal edema, other - Lower extremity edema is gone Musculoskeletal exam: PRESENT: normal inspection. ABSENT: deformity Neurological exam: PRESENT: alert, awake, oriented to person, oriented to place, oriented to situation Psychiatric exam: PRESENT: appropriate affect, normal mood Skin exam: PRESENT: abrasion - Multiple small superficial scabbed over abrasions on his upper extremities, dry, warm Results Laboratory Results: 08/30/18 05:18 08/30/18 05:18 08/30/18 08/30/18 08/30/18 05:18 05:18 15:45 WBC 12.6 H RBC 2.69 L Hgb 8.5 L Hct 24.5 L MCV 91 MCH 31.7 MCHC 34.8 RDW 15.6 H Plt Count 237 Sodium 140.7 Potassium 3.3 L Chloride 101 Carbon Dioxide 25 Anion Gap 15 BUN 29 H Creatinine 1.95 H Est GFR ( Amer) 40 L Est GFR (Non-Af Amer) 33 L Glucose 140 H Calcium 8.8 Magnesium 2.2 Urine Color YELLOW Urine Appearance SLIGHTLY-CLOUDY Urine pH 5.0 Ur Specific [place] 1.013 Urine Protein NEGATIVE Urine Glucose (UA) NEGATIVE Urine Ketones NEGATIVE Urine Blood LARGE H Urine Nitrite NEGATIVE Ur Leukocyte Esterase NEGATIVE Urine WBC (Auto) 4 Urine RBC (Auto) 46 08/28/18 08/28/18 08/29/18 21:53 21:53 03:55 Creatine Kinase 44 L CK-MB (CK-2) 1.15 Troponin I < 0.012 < 0.012 NT-Pro-B Natriuret Pep [id number] H 08/29/18 08/29/18 11:31 17:14 Creatine Kinase CK-MB (CK-2) Troponin I 0.014 0.023 NT-Pro-B Natriuret Pep Impressions: Chest X-Ray 08/28/18 21:30 IMPRESSION: Cardy with central pulmonary vascular prominence and patchy opacification the bilateral air space raising the concern for edema versus multifocal pneumonia. Please correlate with patient clinical findings and consider follow-up for resolution. copyright 2010 [employer]- All Rights Reserved Chest CT 08/28/18 23:05 IMPRESSION: 1. Findings most compatible with bilateral pulmonary edema and small bilateral pleural effusions. 2. No lobar airspace opacity to suggest lobar pneumonia however given diffuse patchy alveolar and groundglass opacities underlying infectious or inflammatory process superimposed on pulmonary edema cannot be excluded. Continued radiographic follow-up to resolution recommended. 3. Cardiomegaly with coronary artery atherosclerosis. This exam was performed according to our departmental dose-optimization program, which includes automated exposure control, adjustment of the mA and/or kV according to patient size and/or use of iterative reconstruction technique. Assessment and Plan - Diagnosis (1) Acute on chronic combined systolic and diastolic CHF (congestive heart failure) Is this a current diagnosis for this admission?: Yes Plan: Increased his Lasix to 40 mg IV twice a day yesterday. He has had a good diuresis so far today. His peripheral edema has resolved and his lungs actually do sound better, with some persistent right lower lobe crackles. We will continue diuresis and medical optimization. (2) Acute renal failure superimposed on stage 3 chronic kidney disease Qualifiers: Acute renal failure type: unspecified Qualified Code(s): N17.9 - Acute kidney failure, unspecified; N18.3 - Chronic kidney disease, stage 3 (moderate) Is this a current diagnosis for this admission?: Yes Plan: This is actually improving with diuresis, creatinine is trending down and is now below 2 (3) Acute respiratory failure with hypoxia Is this a current diagnosis for this admission?: Yes Plan: There is a good chance he will need oxygen when he goes home. Continue supplemental O2 to keep his SPO2 greater than 90% (4) Pneumonia Qualifiers: Pneumonia type: due to unspecified organism Laterality: right Lung location: lower lobe of lung Qualified Code(s): J18.1 - Lobar pneumonia, unspecified organism Is this a current diagnosis for this admission?: Yes Plan: Started empirically on some Rocephin and Zithromax. Blood cultures were already drawn, and sputum cultures pending. Urinalysis was done and was unremarkable. Given his previously mentioned respiratory symptoms and pneumonia would be the most likely source of his fever. - Time Time Spent with patient: 15-24 minutes
[2018-08-30] MEDS: CEFTRIAXONE SODIUM 1,000 MG in DEXTROSE 5%-WATER 50 ML IV SCH (17:50)
[2018-08-30] MEDS: TAMSULOSIN HCL 0.4 MG CAP.SR.24H PO SCH (17:52)
[2018-08-30] MEDS: AZITHROMYCIN 500 MG in DEXTROSE 5%-WATER 250 ML IV SCH (18:34)
[2018-08-30] MEDS: ACETAMINOPHEN 325 MG TABLET PO PRN (20:33)
[2018-08-30] MEDS: LEVALBUTEROL HCL NEB 0.63 MG/3 ML AMPUL NEB PRN (21:03)
[2018-08-31] MEDS: PANTOPRAZOLE SODIUM 40 MG TABLET.DR PO SCH (05:17)
[2018-08-31 06:42] LABS: HEMATOCRIT 24.5 % (37.9-51.0); HEMOGLOBIN 8.5 g/dL (13.5-17.0); MEAN CORPUSCULAR HEMOGLOBIN 31.8 pg (27.0-33.4); MEAN CORPUSCULAR HGB CONC 34.6 g/dL (32.0-36.0); MEAN CORPUSCULAR VOLUME 92 fl (80-97); PLATELET COUNT 218 10^3/uL (150-450); RED BLOOD COUNT 2.67 10^6/uL (4.35-5.55); RED CELL DISTRIBUTION WIDTH 15.5 % (11.5-14.0); WHITE BLOOD COUNT 10.5 10^3/uL (4.0-10.5)
[2018-08-31 07:07] LABS: ANION GAP 10 (5-19); BLOOD UREA NITROGEN 41 mg/dL (7-20); CARBON DIOXIDE 29 mmol/L (22-30); CHLORIDE 104 mmol/L (98-107); GLUCOSE 123 mg/dL (75-110); POTASSIUM 3.6 mmol/L (3.6-5.0); SODIUM 143.1 mmol/L (137-145)
[2018-08-31] MEDS: IPRATROPIUM BROMIDE 0.02% NEB 0.5 MG/2.5 ML AMPUL NEB SCH ×3 (07:56→23:47)
[2018-08-31] MEDS: LEVALBUTEROL HCL NEB 1.25 MG/3 ML AMPUL NEB SCH ×3 (07:56→23:47)
[2018-08-31] MEDS: BUDESONIDE NEB 0.5 MG/2 ML AMPUL NEB SCH ×2 (07:56→19:54)
[2018-08-31] MEDS: FUROSEMIDE INJ/PF 40 MG/4 ML SDV IV SCH ×2 (09:24→21:20)
[2018-08-31] MEDS: LOSARTAN POTASSIUM 25 MG TABLET PO SCH (09:28)
[2018-08-31] MEDS: DOCUSATE SODIUM 100 MG CAPSULE PO SCH ×2 (09:28→17:24)
[2018-08-31] MEDS: METOPROLOL SUCCINATE 25 MG TAB.SR.24H PO SCH (09:28)
[2018-08-31] MEDS: APIXABAN 2.5 MG TABLET PO SCH ×2 (09:28→17:24)
[2018-08-31] MEDS: SPIRONOLACTONE 25 MG TABLET PO SCH (09:29)
[2018-08-31] MEDS: ACETAMINOPHEN 325 MG TABLET PO PRN ×2 (12:24→20:30)
--- NOTE | 2018-08-31 16:38 | PDOC PROGRESS REPORT ---
Subjective Progress Note for:: 08/31/18 Subjective:: No adverse events overnight. He had a coughing spell this morning and had to go back on BiPAP for short period of time. He was able to come back off of it this afternoon. He had a good diuresis yesterday. He still has a productive cough but it does not seem as copious as yesterday. Reason For Visit: ACUTE RESPIRATORY FAILURE WITH HYPOXIA, AND ACUTE Physical Exam Vital Signs: Temp Pulse Resp BP Pulse Ox 100.1 F 86 23 H 125/43 L 92 08/31/18 12:00 08/31/18 12:00 08/31/18 12:00 08/31/18 12:00 08/31/18 13:24 Pulse Oximeter Continuous Start: 08/30/18 04:48 Freq: RTQ4 Status: Active Protocol: Document 08/31/18 13:24 [facility] (Rec: 08/31/18 13:25 [facility] [id number]) Pulse Oximetry Assessment Oxygen Saturation (92-100) 92 Oxygen Flow Rate (L/min) 6 Oxygen Delivery Method Nasal Cannula Fraction of Inspired Oxygen (FIO2) 44 Equipment Usage Equipment in Use Continuous SpO2 Machine # n 5 Intake & Output 08/30/18 08/31/18 09/01/18 06:59 06:59 06:59 Intake Total 778 540 200 Output Total 550 2750 200 Balance 228 -2210 0 Weight 76.6 kg 71.9 kg General appearance: PRESENT: cooperative, disheveled, mild distress Respiratory exam: PRESENT: crackles -diffuse today, primarily in the upper lobes. Accessory muscle use. ABSENT: prolonged expiratory phase, rhonchi, unlabored, wheezes Cardiovascular exam: PRESENT: RRR - 100% V paced on the monitor, +S1, +S2 Pulses: PRESENT: normal carotid pulses Vascular exam: PRESENT: normal capillary refill GI/Abdominal exam: PRESENT: normal bowel sounds, soft. ABSENT: distended, guarding, rebound, tenderness Extremities exam: ABSENT: clubbing, pedal edema, other - Lower extremity edema is gone Musculoskeletal exam: PRESENT: normal inspection. ABSENT: deformity Neurological exam: PRESENT: alert, awake, oriented to person, oriented to place, oriented to situation Psychiatric exam: PRESENT: appropriate affect, normal mood Skin exam: PRESENT: abrasion - Multiple small superficial scabbed over abrasions on his upper extremities, dry, warm Results Laboratory Results: 08/31/18 06:02 08/31/18 06:02 08/31/18 08/31/18 06:02 06:02 WBC 10.5 RBC 2.67 L Hgb 8.5 L Hct 24.5 L MCV 92 MCH 31.8 MCHC 34.6 RDW 15.5 H Plt Count 218 Sodium 143.1 Potassium 3.6 Chloride 104 Carbon Dioxide 29 Anion Gap 10 BUN 41 H Creatinine 2.11 H Est GFR ( Amer) 37 L Est GFR (Non-Af Amer) 30 L Glucose 123 H Calcium 9.0 Magnesium 2.6 H 08/28/18 08/28/18 08/29/18 21:53 21:53 03:55 Creatine Kinase 44 L CK-MB (CK-2) 1.15 Troponin I < 0.012 < 0.012 NT-Pro-B Natriuret Pep [id number] H 08/29/18 08/29/18 11:31 17:14 Creatine Kinase CK-MB (CK-2) Troponin I 0.014 0.023 NT-Pro-B Natriuret Pep Impressions: Chest X-Ray 08/28/18 21:30 IMPRESSION: Cardy with central pulmonary vascular prominence and patchy opacification the bilateral air space raising the concern for edema versus multifocal pneumonia. Please correlate with patient clinical findings and consider follow-up for resolution. copyright 2011 [employer]- All Rights Reserved Chest CT 08/28/18 23:05 IMPRESSION: 1. Findings most compatible with bilateral pulmonary edema and small bilateral pleural effusions. 2. No lobar airspace opacity to suggest lobar pneumonia however given diffuse patchy alveolar and groundglass opacities underlying infectious or inflammatory process superimposed on pulmonary edema cannot be excluded. Continued radiographic follow-up to resolution recommended. 3. Cardiomegaly with coronary artery atherosclerosis. This exam was performed according to our departmental dose-optimization program, which includes automated exposure control, adjustment of the mA and/or kV according to patient size and/or use of iterative reconstruction technique. Assessment and Plan - Diagnosis (1) Acute on chronic combined systolic and diastolic CHF (congestive heart failure) Is this a current diagnosis for this admission?: Yes Plan: Continue IV Lasix twice a day. Urine output is been good. Breathing is improving, able to stay on BiPAP for longer periods of time except when he is had a coughing fit. Medical optimization. (2) Acute renal failure superimposed on stage 3 chronic kidney disease Qualifiers: Acute renal failure type: unspecified Qualified Code(s): N17.9 - Acute kidney failure, unspecified; N18.3 - Chronic kidney disease, stage 3 (moderate) Is this a current diagnosis for this admission?: Yes Plan: Creatinine bumped back up a little bit today. We will monitor his creatinine to see if we need to back off on his Lasix, but his breathing is improving on Lasix and so we may have to get him back to a good volume status and then let his kidneys correct on their own. (3) Acute respiratory failure with hypoxia Is this a current diagnosis for this admission?: Yes Plan: There is a good chance he will need oxygen when he goes home. Continue supplemental O2 to keep his SPO2 greater than 90% (4) Pneumonia Qualifiers: Pneumonia type: due to unspecified organism Laterality: right Lung location: lower lobe of lung Qualified Code(s): J18.1 - Lobar pneumonia, unspecified organism Is this a current diagnosis for this admission?: Yes Plan: Continue current antibiotics, monitoring for response. White blood cell count did come out today. He is been afebrile. Cultures are pending. Cough is less productive. - Time Time Spent with patient: 25-34 minutes
[2018-08-31] MEDS: TAMSULOSIN HCL 0.4 MG CAP.SR.24H PO SCH (17:24)
[2018-08-31] MEDS: CEFTRIAXONE SODIUM 1,000 MG in DEXTROSE 5%-WATER 50 ML IV SCH (17:25)
[2018-08-31] MEDS: AZITHROMYCIN 500 MG in DEXTROSE 5%-WATER 250 ML IV SCH (18:02)
[2018-08-31] MEDS: LEVALBUTEROL HCL NEB 0.63 MG/3 ML AMPUL NEB PRN (19:54)
[2018-09-01] MEDS: LEVALBUTEROL HCL NEB 0.63 MG/3 ML AMPUL NEB PRN ×2 (04:17→07:02)
[2018-09-01] MEDS: PANTOPRAZOLE SODIUM 40 MG TABLET.DR PO SCH (05:15)
[2018-09-01] MEDS: ACETAMINOPHEN 325 MG TABLET PO PRN ×2 (08:28→17:17)
[2018-09-01] MEDS: BUDESONIDE NEB 0.5 MG/2 ML AMPUL NEB SCH ×2 (08:33→20:09)
[2018-09-01] MEDS: IPRATROPIUM BROMIDE 0.02% NEB 0.5 MG/2.5 ML AMPUL NEB SCH ×3 (08:33→23:47)
[2018-09-01] MEDS: LEVALBUTEROL HCL NEB 1.25 MG/3 ML AMPUL NEB SCH ×3 (08:34→23:47)
[2018-09-01 08:37] LABS: HEMATOCRIT 25.1 % (37.9-51.0); HEMOGLOBIN 8.5 g/dL (13.5-17.0); MEAN CORPUSCULAR HEMOGLOBIN 31.2 pg (27.0-33.4); MEAN CORPUSCULAR VOLUME 92 fl (80-97); PLATELET COUNT 240 10^3/uL (150-450); RED BLOOD COUNT 2.73 10^6/uL (4.35-5.55); RED CELL DISTRIBUTION WIDTH 14.8 % (11.5-14.0); WHITE BLOOD COUNT 9.7 10^3/uL (4.0-10.5)
[2018-09-01 08:56] LABS: ANION GAP 11 (5-19); BLOOD UREA NITROGEN 43 mg/dL (7-20); CALCIUM 8.9 mg/dL (8.4-10.2); CARBON DIOXIDE 30 mmol/L (22-30); CHLORIDE 102 mmol/L (98-107); GLUCOSE 138 mg/dL (75-110); POTASSIUM 3.4 mmol/L (3.6-5.0); SODIUM 142.9 mmol/L (137-145)
[2018-09-01] MEDS: METOPROLOL SUCCINATE 25 MG TAB.SR.24H PO SCH (11:01)
[2018-09-01] MEDS: LOSARTAN POTASSIUM 25 MG TABLET PO SCH (11:02)
[2018-09-01] MEDS: APIXABAN 2.5 MG TABLET PO SCH ×2 (11:02→17:16)
[2018-09-01] MEDS: DOCUSATE SODIUM 100 MG CAPSULE PO SCH ×2 (11:02→17:16)
[2018-09-01] MEDS: SPIRONOLACTONE 25 MG TABLET PO SCH (11:03)
[2018-09-01] MEDS: FUROSEMIDE INJ/PF 40 MG/4 ML SDV IV SCH (11:03)
[2018-09-01] MEDS ORDERED: POTASSIUM CHLORIDE 10 MEQ CAPSULE.ER PO ONE (15:09)
--- NOTE | 2018-09-01 15:31 | PDOC PROGRESS REPORT ---
Subjective Progress Note for:: 09/01/18 Subjective:: No adverse events overnight. He spent a little while yesterday on the nasal cannula and off BiPAP. He got into another coughing fit last night and had to put BiPAP on and he slept overnight with it on. He was able to come off of it for a while this morning as well. Reason For Visit: ACUTE RESPIRATORY FAILURE WITH HYPOXIA, AND ACUTE Physical Exam Vital Signs: Temp Pulse Resp BP Pulse Ox 98.9 F 74 24 H 113/43 L 97 09/01/18 12:00 09/01/18 12:00 09/01/18 12:00 09/01/18 12:00 09/01/18 12:00 Pulse Oximeter Continuous Start: 08/30/18 04:48 Freq: RTQ4 Status: Active Protocol: Document 09/01/18 12:00 [facility] (Rec: 09/01/18 13:41 [facility] [id number]) Pulse Oximetry Assessment Oxygen Saturation (92-100) 95 Oxygen Flow Rate (L/min) 4 Oxygen Delivery Method Nasal Cannula Fraction of Inspired Oxygen (FIO2) 36 Equipment Usage Equipment in Use Continuous SpO2 Machine # 5 Intake & Output 08/31/18 09/01/18 09/02/18 06:59 06:59 06:59 Intake Total 540 1430 Output Total 2750 1370 Balance -2210 60 Weight 71.9 kg 71.3 kg General appearance: PRESENT: cooperative, disheveled, mild distress Respiratory exam: PRESENT: crackles -right upper lobe and left lower lobe. ABSENT: Accessory muscle use, prolonged expiratory phase, rhonchi, unlabored, wheezes Cardiovascular exam: PRESENT: RRR - 100% V paced on the monitor, +S1, +S2 Pulses: PRESENT: normal carotid pulses Vascular exam: PRESENT: normal capillary refill GI/Abdominal exam: PRESENT: normal bowel sounds, soft. ABSENT: distended, guarding, rebound, tenderness Extremities exam: ABSENT: clubbing, pedal edema, other - Lower extremity edema is gone Musculoskeletal exam: PRESENT: normal inspection. ABSENT: deformity Neurological exam: PRESENT: alert, awake, oriented to person, oriented to place, oriented to situation Psychiatric exam: PRESENT: appropriate affect, normal mood Skin exam: PRESENT: abrasion - Multiple small superficial scabbed over abrasions on his upper extremities, dry, warm Results Laboratory Results: 09/01/18 08:05 09/01/18 08:05 09/01/18 09/01/18 08:05 08:05 WBC 9.7 RBC 2.73 L Hgb 8.5 L Hct 25.1 L MCV 92 MCH 31.2 MCHC 34.0 RDW 14.8 H Plt Count 240 Sodium 142.9 Potassium 3.4 L Chloride 102 Carbon Dioxide 30 Anion Gap 11 BUN 43 H Creatinine 2.02 H Est GFR ( Amer) 39 L Est GFR (Non-Af Amer) 32 L Glucose 138 H Calcium 8.9 08/30/18 15:45 Catheterized Urine Urine Culture - Final NO GROWTH 2 DAYS 08/28/18 08/28/18 08/29/18 21:53 21:53 03:55 Creatine Kinase 44 L CK-MB (CK-2) 1.15 Troponin I < 0.012 < 0.012 NT-Pro-B Natriuret Pep [id number] H 08/29/18 08/29/18 11:31 17:14 Creatine Kinase CK-MB (CK-2) Troponin I 0.014 0.023 NT-Pro-B Natriuret Pep Impressions: Chest X-Ray 08/28/18 21:30 IMPRESSION: Cardy with central pulmonary vascular prominence and patchy opacification the bilateral air space raising the concern for edema versus multifocal pneumonia. Please correlate with patient clinical findings and consider follow-up for resolution. copyright 2011 [employer]- All Rights Reserved Chest CT 08/28/18 23:05 IMPRESSION: 1. Findings most compatible with bilateral pulmonary edema and small bilateral pleural effusions. 2. No lobar airspace opacity to suggest lobar pneumonia however given diffuse patchy alveolar and groundglass opacities underlying infectious or inflammatory process superimposed on pulmonary edema cannot be excluded. Continued radiographic follow-up to resolution recommended. 3. Cardiomegaly with coronary artery atherosclerosis. This exam was performed according to our departmental dose-optimization program, which includes automated exposure control, adjustment of the mA and/or kV according to patient size and/or use of iterative reconstruction technique. Assessment and Plan - Diagnosis (1) Acute on chronic combined systolic and diastolic CHF (congestive heart failure) Is this a current diagnosis for this admission?: Yes Plan: His urine output is starting to balance out some and cut his Lasix back to once a day, creatinine is stable around 2. (2) Acute renal failure superimposed on stage 3 chronic kidney disease Qualifiers: Acute renal failure type: unspecified Qualified Code(s): N17.9 - Acute kidney failure, unspecified; N18.3 - Chronic kidney disease, stage 3 (moderate) Is this a current diagnosis for this admission?: Yes Plan: Creatinine stable around 2. I will cut his Lasix back to once a day to see how he responds, but his breathing is improving on Lasix and so we may have to get him back to a good volume status and then let his kidneys correct on their own. (3) Acute respiratory failure with hypoxia Is this a current diagnosis for this admission?: Yes Plan: There is a good chance he will need oxygen when he goes home. Continue supplemental O2 to keep his SPO2 greater than 90% (4) Pneumonia Qualifiers: Pneumonia type: due to unspecified organism Laterality: right Lung location: lower lobe of lung Qualified Code(s): J18.1 - Lobar pneumonia, unspecified organism Is this a current diagnosis for this admission?: Yes Plan: Continue current antibiotics, monitoring for response. He is been afebrile. Cultures are pending. Cough is less productive. - Time Time Spent with patient: 15-24 minutes
[2018-09-01] MEDS: TAMSULOSIN HCL 0.4 MG CAP.SR.24H PO SCH (17:16)
[2018-09-01] MEDS ORDERED: CEFTRIAXONE 1 GM/D5W RTU 1 GM/50 ML RTUPB IV ONE (17:57)
[2018-09-01] MEDS ORDERED: AZITHROMYCIN INJ 500 MG VIAL IV ONE (17:58)
[2018-09-01] MEDS: CEFTRIAXONE SODIUM 1,000 MG in DEXTROSE 5%-WATER 50 ML IV SCH (18:11)
[2018-09-01] MEDS: AZITHROMYCIN 500 MG in DEXTROSE 5%-WATER 250 ML IV SCH (19:01)
[2018-09-02] MEDS: PANTOPRAZOLE SODIUM 40 MG TABLET.DR PO SCH (06:29)
[2018-09-02 06:52] LABS: HEMOGLOBIN 8.3 g/dL (13.5-17.0); MEAN CORPUSCULAR HEMOGLOBIN 30.9 pg (27.0-33.4); MEAN CORPUSCULAR HGB CONC 33.3 g/dL (32.0-36.0); MEAN CORPUSCULAR VOLUME 93 fl (80-97); PLATELET COUNT 224 10^3/uL (150-450); RED CELL DISTRIBUTION WIDTH 15.4 % (11.5-14.0); WHITE BLOOD COUNT 7.6 10^3/uL (4.0-10.5)
[2018-09-02 07:11] LABS: ANION GAP 13 (5-19); BLOOD UREA NITROGEN 47 mg/dL (7-20); CALCIUM 9.2 mg/dL (8.4-10.2); CARBON DIOXIDE 28 mmol/L (22-30); CHLORIDE 103 mmol/L (98-107); GLUCOSE 162 mg/dL (75-110); POTASSIUM 3.9 mmol/L (3.6-5.0); SODIUM 143.5 mmol/L (137-145)
[2018-09-02] MEDS ORDERED: ACETAMINOPHEN 650 MG SUPP.RECT PR PRN (08:14)
[2018-09-02] MEDS: LEVALBUTEROL HCL NEB 1.25 MG/3 ML AMPUL NEB SCH ×3 (08:24→23:42)
[2018-09-02] MEDS: IPRATROPIUM BROMIDE 0.02% NEB 0.5 MG/2.5 ML AMPUL NEB SCH ×3 (08:24→23:42)
[2018-09-02] MEDS: BUDESONIDE NEB 0.5 MG/2 ML AMPUL NEB SCH ×2 (08:24→19:42)
[2018-09-02] MEDS: SPIRONOLACTONE 25 MG TABLET PO SCH (09:18)
[2018-09-02] MEDS: APIXABAN 2.5 MG TABLET PO SCH ×2 (09:18→19:18)
[2018-09-02] MEDS: DOCUSATE SODIUM 100 MG CAPSULE PO SCH ×2 (09:18→19:18)
[2018-09-02] MEDS: METOPROLOL SUCCINATE 25 MG TAB.SR.24H PO SCH (09:19)
[2018-09-02] MEDS: FUROSEMIDE INJ/PF 40 MG/4 ML SDV IV SCH (09:19)
[2018-09-02] MEDS: LOSARTAN POTASSIUM 25 MG TABLET PO SCH (09:26)
[2018-09-02] MEDS ORDERED: CEFEPIME 2 GM/D5W RTU 2 GM/50 ML RTUPB IV SCH (12:16)
[2018-09-02] MEDS ORDERED: VANCOMYCIN HCL 0 MG in DEXTROSE 5%-WATER 250 ML IV NR (12:30)
[2018-09-02] MEDS: METHYLPREDNISOLONE INJ 40 MG/1 ML SDV IV SCH ×2 (14:07→21:40)
[2018-09-02] MEDS ORDERED: ACETYLCYSTEINE 20% SOLN 800 MG/4 ML VIAL.NEB NEB SCH ×2 (16:00→20:00)
[2018-09-02] MEDS: CEFEPIME HCL 2 GM in DEXTROSE 5%-WATER 50 ML IV SCH (16:09)
[2018-09-02] MEDS: TAMSULOSIN HCL 0.4 MG CAP.SR.24H PO SCH (16:13)
--- NOTE | 2018-09-02 16:55 | PDOC PROGRESS REPORT ---
Subjective Progress Note for:: 09/02/18 Subjective:: No adverse events overnight. He was febrile yesterday and again this morning. He has a tendency to stay on the BiPAP when he can probably come off and has to be prompted to come off of it and stay on the nasal cannula for a while. Blood culture turned out to be a contaminant. He still coughing up copious amounts of sputum. Reason For Visit: ACUTE RESPIRATORY FAILURE WITH HYPOXIA, AND ACUTE Physical Exam Vital Signs: Temp Pulse Resp BP Pulse Ox 98.3 F 74 26 H 121/52 L 92 09/02/18 12:00 09/02/18 12:00 09/02/18 12:00 09/02/18 12:00 09/02/18 12:37 Pulse Oximeter Continuous Start: 08/30/18 04:48 Freq: RTQ4 Status: Active Protocol: Document 09/02/18 12:37 [facility] (Rec: 09/02/18 12:37 [facility] [id number]) Pulse Oximetry Assessment Oxygen Saturation (92-100) 92 Oxygen Flow Rate (L/min) 6 Oxygen Delivery Method Nasal Cannula Fraction of Inspired Oxygen (FIO2) 44 Equipment Usage Equipment in Use Continuous SpO2 Machine # 5 Intake & Output 09/01/18 09/02/18 09/03/18 06:59 06:59 06:59 Intake Total 1430 960 Output Total 1370 1100 Balance 60 -140 Weight 71.3 kg 74.5 kg General appearance: PRESENT: cooperative, disheveled, mild distress Respiratory exam: PRESENT: crackles left lower lobe. ABSENT: Accessory muscle use, prolonged expiratory phase, rhonchi, unlabored, wheezes Cardiovascular exam: PRESENT: RRR - 100% V paced on the monitor, +S1, +S2 Pulses: PRESENT: normal carotid pulses Vascular exam: PRESENT: normal capillary refill GI/Abdominal exam: PRESENT: normal bowel sounds, soft. ABSENT: distended, guarding, rebound, tenderness Extremities exam: ABSENT: clubbing, pedal edema, other - Lower extremity edema is gone Musculoskeletal exam: PRESENT: normal inspection. ABSENT: deformity Neurological exam: PRESENT: alert, awake, oriented to person, oriented to place, oriented to situation Psychiatric exam: PRESENT: appropriate affect, normal mood Skin exam: PRESENT: abrasion - Multiple small superficial scabbed over abrasions on his upper extremities, dry, warm Results Laboratory Results: 09/02/18 06:02 09/02/18 06:02 09/02/18 09/02/18 06:02 06:02 WBC 7.6 RBC 2.70 L Hgb 8.3 L Hct 25.0 L MCV 93 MCH 30.9 MCHC 33.3 RDW 15.4 H Plt Count 224 Sodium 143.5 Potassium 3.9 Chloride 103 Carbon Dioxide 28 Anion Gap 13 BUN 47 H Creatinine 1.86 H Est GFR ( Amer) 43 L Est GFR (Non-Af Amer) 35 L Glucose 162 H Calcium 9.2 08/29/18 03:55 Blood Blood Culture - Final Staphylococcus Capitis 08/30/18 16:50 Sputum Gram Stain - Final 08/30/18 16:50 Sputum Sputum Culture - Final NORMAL RADHA 08/30/18 15:45 Catheterized Urine Urine Culture - Final NO GROWTH 2 DAYS 08/28/18 08/28/18 08/29/18 21:53 21:53 03:55 Creatine Kinase 44 L CK-MB (CK-2) 1.15 Troponin I < 0.012 < 0.012 NT-Pro-B Natriuret Pep [id number] H 08/29/18 08/29/18 11:31 17:14 Creatine Kinase CK-MB (CK-2) Troponin I 0.014 0.023 NT-Pro-B Natriuret Pep Impressions: Chest X-Ray 08/28/18 21:30 IMPRESSION: Cardy with central pulmonary vascular prominence and patchy opacification the bilateral air space raising the concern for edema versus multifocal pneumonia. Please correlate with patient clinical findings and consider follow-up for resolution. copyright 2011 [employer]- All Rights Reserved Chest CT 08/28/18 23:05 IMPRESSION: 1. Findings most compatible with bilateral pulmonary edema and small bilateral pleural effusions. 2. No lobar airspace opacity to suggest lobar pneumonia however given diffuse patchy alveolar and groundglass opacities underlying infectious or inflammatory process superimposed on pulmonary edema cannot be excluded. Continued radiographic follow-up to resolution recommended. 3. Cardiomegaly with coronary artery atherosclerosis. This exam was performed according to our departmental dose-optimization program, which includes automated exposure control, adjustment of the mA and/or kV according to patient size and/or use of iterative reconstruction technique. Assessment and Plan - Diagnosis (1) Acute on chronic combined systolic and diastolic CHF (congestive heart failure) Is this a current diagnosis for this admission?: Yes Plan: I think he is euvolemic now. He is on Lasix once a day and his ins and outs seem to be fairly well balanced. (2) Acute renal failure superimposed on stage 3 chronic kidney disease Qualifiers: Acute renal failure type: unspecified Qualified Code(s): N17.9 - Acute kidney failure, unspecified; N18.3 - Chronic kidney disease, stage 3 (moderate) Is this a current diagnosis for this admission?: Yes Plan: Creatinine is improved today. We will continue to monitor the trend. Trying to avoid giving him fluid because he overload very easily. (3) Acute respiratory failure with hypoxia Is this a current diagnosis for this admission?: Yes Plan: He likes having the BiPAP on, where have been to make him to get off and get on the nasal cannula, which he can typically tolerate for at least a few hours at a time. (4) Pneumonia Qualifiers: Pneumonia type: due to unspecified organism Laterality: right Lung location: lower lobe of lung Qualified Code(s): J18.1 - Lobar pneumonia, unspecified organism Is this a current diagnosis for this admission?: Yes Plan: His white blood cell count is come down but he still coughing up copious amounts of sputum. We will switch his antibiotics to vancomycin and Zosyn and attempt to get a better sputum culture because the one that he gave us was mostly saliva. I am also going to start him on steroids. Apparently he smoked from sometime in his teens to age 50, up to 2 packs a day. - Time Time Spent with patient: 25-34 minutes
[2018-09-02] MEDS: VANCOMYCIN HCL 1,000 MG in DEXTROSE 5%-WATER 250 ML IV SCH (17:14)
[2018-09-02] MEDS: ACETYLCYSTEINE 20% SOLN 800 MG/4 ML VIAL.NEB NEB SCH (19:41)
[2018-09-02] MEDS: LEVALBUTEROL HCL NEB 0.63 MG/3 ML AMPUL NEB PRN (19:42)
[2018-09-03] MEDS: LEVALBUTEROL HCL NEB 0.63 MG/3 ML AMPUL NEB PRN (03:51)
[2018-09-03] MEDS: PANTOPRAZOLE SODIUM 40 MG TABLET.DR PO SCH (05:14)
[2018-09-03] MEDS: CEFEPIME HCL 2 GM in DEXTROSE 5%-WATER 50 ML IV SCH ×2 (05:14→18:35)
[2018-09-03] MEDS: METHYLPREDNISOLONE INJ 40 MG/1 ML SDV IV SCH ×3 (05:14→21:35)
[2018-09-03 06:46] LABS: HEMATOCRIT 25.2 % (37.9-51.0); HEMOGLOBIN 8.4 g/dL (13.5-17.0); MEAN CORPUSCULAR HEMOGLOBIN 30.8 pg (27.0-33.4); MEAN CORPUSCULAR HGB CONC 33.2 g/dL (32.0-36.0); MEAN CORPUSCULAR VOLUME 93 fl (80-97); PLATELET COUNT 196 10^3/uL (150-450); RED BLOOD COUNT 2.72 10^6/uL (4.35-5.55); RED CELL DISTRIBUTION WIDTH 15.8 % (11.5-14.0); WHITE BLOOD COUNT 5.2 10^3/uL (4.0-10.5)
[2018-09-03 07:22] LABS: ANION GAP 12 (5-19); BLOOD UREA NITROGEN 55 mg/dL (7-20); CALCIUM 8.9 mg/dL (8.4-10.2); CARBON DIOXIDE 27 mmol/L (22-30); CHLORIDE 105 mmol/L (98-107); GLUCOSE 209 mg/dL (75-110); POTASSIUM 3.8 mmol/L (3.6-5.0); SODIUM 143.6 mmol/L (137-145)
[2018-09-03] MEDS: LEVALBUTEROL HCL NEB 1.25 MG/3 ML AMPUL NEB SCH ×2 (07:41→16:42)
[2018-09-03] MEDS: IPRATROPIUM BROMIDE 0.02% NEB 0.5 MG/2.5 ML AMPUL NEB SCH ×2 (07:41→16:42)
[2018-09-03] MEDS: BUDESONIDE NEB 0.5 MG/2 ML AMPUL NEB SCH ×2 (07:41→20:15)
[2018-09-03] MEDS: METOPROLOL SUCCINATE 25 MG TAB.SR.24H PO SCH (09:35)
[2018-09-03] MEDS: SPIRONOLACTONE 25 MG TABLET PO SCH (09:35)
[2018-09-03] MEDS: DOCUSATE SODIUM 100 MG CAPSULE PO SCH ×2 (09:35→18:35)
[2018-09-03] MEDS: LOSARTAN POTASSIUM 25 MG TABLET PO SCH (09:35)
[2018-09-03] MEDS: APIXABAN 2.5 MG TABLET PO SCH ×2 (09:35→18:35)
[2018-09-03] MEDS: FUROSEMIDE INJ/PF 40 MG/4 ML SDV IV SCH (09:37)
[2018-09-03] MEDS: VANCOMYCIN HCL 1,000 MG in DEXTROSE 5%-WATER 250 ML IV SCH (09:37)
--- NOTE | 2018-09-03 16:47 | PDOC PROGRESS REPORT ---
Subjective Progress Note for:: 09/03/18 Subjective:: No adverse events overnight. No more fevers. Still coughing up copious amounts of sputum. Remains on broad-spectrum antibiotics. About 4 L per nasal cannula at rest he is about 88 to 89% he looks fairly comfortable. Whenever he talks his oxygen levels desaturated to the low 80s and takes him about 30 seconds taking some deep breaths for his saturations to come back up. Reason For Visit: ACUTE RESPIRATORY FAILURE WITH HYPOXIA, AND ACUTE Physical Exam Vital Signs: Temp Pulse Resp BP Pulse Ox 97.5 F 97 21 H 120/49 L 93 09/03/18 12:37 09/03/18 12:37 09/03/18 12:37 09/03/18 12:37 09/03/18 12:37 Pulse Oximeter Continuous Start: 08/30/18 04:48 Freq: RTQ4 Status: Active Protocol: Document 09/03/18 12:24 [facility] [place] (Rec: 09/03/18 12:24 [facility] [place] [id number]) Pulse Oximetry Assessment Oxygen Saturation (92-100) 94 Oxygen Flow Rate (L/min) 6 Oxygen Delivery Method Nasal Cannula Fraction of Inspired Oxygen (FIO2) 44 Equipment Usage Equipment in Use Continuous SpO2 Machine # N 5 Intake & Output 09/02/18 09/03/18 09/04/18 06:59 06:59 06:59 Intake Total 960 650 250 Output Total 1100 975 Balance -140 -325 250 Weight 74.5 kg 80.3 kg General appearance: PRESENT: cooperative, disheveled, mild distress Respiratory exam: PRESENT: crackles left lower lobe. ABSENT: Accessory muscle use, prolonged expiratory phase, rhonchi, unlabored, wheezes Cardiovascular exam: PRESENT: RRR - 100% V paced on the monitor, +S1, +S2 Pulses: PRESENT: normal carotid pulses Vascular exam: PRESENT: normal capillary refill GI/Abdominal exam: PRESENT: normal bowel sounds, soft. ABSENT: distended, guarding, rebound, tenderness Extremities exam: ABSENT: clubbing, pedal edema, other - Lower extremity edema is gone Musculoskeletal exam: PRESENT: normal inspection. ABSENT: deformity Neurological exam: PRESENT: alert, awake, oriented to person, oriented to place, oriented to situation Psychiatric exam: PRESENT: appropriate affect, normal mood Skin exam: PRESENT: abrasion - Multiple small superficial scabbed over abrasions on his upper extremities, dry, warm Results Laboratory Results: 09/03/18 06:24 09/03/18 06:24 09/03/18 09/03/18 06:24 06:24 WBC 5.2 RBC 2.72 L Hgb 8.4 L Hct 25.2 L MCV 93 MCH 30.8 MCHC 33.2 RDW 15.8 H Plt Count 196 Sodium 143.6 Potassium 3.8 Chloride 105 Carbon Dioxide 27 Anion Gap 12 BUN 55 H Creatinine 1.46 H Est GFR ( Amer) 56 L Est GFR (Non-Af Amer) 46 L Glucose 209 H Calcium 8.9 08/28/18 23:44 Blood Blood Culture - Final NO GROWTH IN 5 DAYS 08/29/18 03:55 Blood Blood Culture - Final Staphylococcus Capitis 08/28/18 08/28/18 08/29/18 21:53 21:53 03:55 Creatine Kinase 44 L CK-MB (CK-2) 1.15 Troponin I < 0.012 < 0.012 NT-Pro-B Natriuret Pep 53250 H 08/29/18 08/29/18 09/03/18 11:31 17:14 12:42 Creatine Kinase CK-MB (CK-2) Troponin I 0.014 0.023 0.032 NT-Pro-B Natriuret Pep Impressions: Chest X-Ray 08/28/18 21:30 IMPRESSION: Cardy with central pulmonary vascular prominence and patchy opacification the bilateral air space raising the concern for edema versus multifocal pneumonia. Please correlate with patient clinical findings and consider follow-up for resolution. copyright 2011 [facility]- All Rights Reserved Chest CT 08/28/18 23:05 IMPRESSION: 1. Findings most compatible with bilateral pulmonary edema and small bilateral pleural effusions. 2. No lobar airspace opacity to suggest lobar pneumonia however given diffuse patchy alveolar and groundglass opacities underlying infectious or inflammatory process superimposed on pulmonary edema cannot be excluded. Continued radiographic follow-up to resolution recommended. 3. Cardiomegaly with coronary artery atherosclerosis. This exam was performed according to our departmental dose-optimization program, which includes automated exposure control, adjustment of the mA and/or kV according to patient size and/or use of iterative reconstruction technique. Assessment and Plan - Diagnosis (1) Acute on chronic combined systolic and diastolic CHF (congestive heart failure) Is this a current diagnosis for this admission?: Yes Plan: I think he is euvolemic now. He is on Lasix once a day and his ins and outs seem to be fairly well balanced. (2) Acute renal failure superimposed on stage 3 chronic kidney disease Qualifiers: Acute renal failure type: unspecified Qualified Code(s): N17.9 - Acute kidney failure, unspecified; N18.3 - Chronic kidney disease, stage 3 (moderate) Is this a current diagnosis for this admission?: Yes Plan: Creatinine has improved, very close to his baseline now at 1.43. (3) Acute respiratory failure with hypoxia Is this a current diagnosis for this admission?: Yes Plan: He likes having the BiPAP on, where have been to make him to get off and get on the nasal cannula, which he can typically tolerate for at least a few hours at a time. May require higher concentrations of oxygen on the nasal cannula to keep his sats up, but he is a lot more comfortable with added pressure from the BiPAP. (4) Pneumonia Qualifiers: Pneumonia type: due to unspecified organism Laterality: right Lung location: lower lobe of lung Qualified Code(s): J18.1 - Lobar pneumonia, unspecified organism Is this a current diagnosis for this admission?: Yes Plan: His white blood cell count is come down but he still coughing up copious amounts of sputum. We will switch his antibiotics to vancomycin and Zosyn and attempt to get a better sputum culture because the one that he gave us was mostly saliva. Started steroids yesterday apparently. He smoked from sometime in his teens to age 50, up to 2 packs a day. I am going to repeat a chest x-ray today to assess for interval change. He is taking a long time to make very slow improvements. - Time Time Spent with patient: 25-34 minutes
[2018-09-03] MEDS: TAMSULOSIN HCL 0.4 MG CAP.SR.24H PO SCH (18:35)
[2018-09-03] MEDS: ACETYLCYSTEINE 20% SOLN 800 MG/4 ML VIAL.NEB NEB SCH (20:27)
--- NOTE | 2018-09-03 21:06 | RADIOLOGY REPORT (SQ) ---
EXAM DESCRIPTION: XR CHEST 1 VIEW COMPLETED DATE/TME: 09/03/2018 00:00 CLINICAL HISTORY: 78 years, Male, Dyspnea COMPARISON: Prior study from 08/28/2018 NUMBER OF VIEWS: One TECHNIQUE: Single frontal view of the chest was obtained portably LIMITATIONS: None. FINDINGS: Status post median sternotomy. Left subclavian approach AICD/pacer is in position. Cardiac and mediastinal contours are stable. Patchy multifocal opacity is noted throughout both lungs, somewhat increased from the previous chest radiograph. No pneumothorax or large pleural effusion. IMPRESSION: Interval increase in multifocal bilateral airspace disease. Considerations include multifocal pneumonia or pulmonary edema. copyright 2010 [employer]- All Rights Reserved
[2018-09-04] MEDS: LEVALBUTEROL HCL NEB 1.25 MG/3 ML AMPUL NEB SCH ×3 (00:49→16:44)
[2018-09-04] MEDS: IPRATROPIUM BROMIDE 0.02% NEB 0.5 MG/2.5 ML AMPUL NEB SCH ×3 (00:49→16:44)
[2018-09-04] MEDS: CEFEPIME HCL 2 GM in DEXTROSE 5%-WATER 50 ML IV SCH ×2 (05:05→17:41)
[2018-09-04] MEDS: PANTOPRAZOLE SODIUM 40 MG TABLET.DR PO SCH (05:05)
[2018-09-04] MEDS: METHYLPREDNISOLONE INJ 40 MG/1 ML SDV IV SCH ×2 (05:05→17:41)
[2018-09-04 06:51] LABS: HEMOGLOBIN 8.6 g/dL (13.5-17.0); MEAN CORPUSCULAR HEMOGLOBIN 30.5 pg (27.0-33.4); MEAN CORPUSCULAR HGB CONC 33.1 g/dL (32.0-36.0); MEAN CORPUSCULAR VOLUME 92 fl (80-97); PLATELET COUNT 247 10^3/uL (150-450); RED BLOOD COUNT 2.83 10^6/uL (4.35-5.55); RED CELL DISTRIBUTION WIDTH 15.3 % (11.5-14.0); WHITE BLOOD COUNT 6.5 10^3/uL (4.0-10.5)
[2018-09-04 07:03] LABS: ANION GAP 13 (5-19); BLOOD UREA NITROGEN 62 mg/dL (7-20); CALCIUM 9.1 mg/dL (8.4-10.2); CARBON DIOXIDE 28 mmol/L (22-30); CHLORIDE 105 mmol/L (98-107); GLUCOSE 205 mg/dL (75-110); POTASSIUM 3.8 mmol/L (3.6-5.0); SODIUM 145.7 mmol/L (137-145)
[2018-09-04] MEDS: BUDESONIDE NEB 0.5 MG/2 ML AMPUL NEB SCH ×2 (08:17→19:42)
[2018-09-04] MEDS: ACETYLCYSTEINE 20% SOLN 800 MG/4 ML VIAL.NEB NEB SCH (09:20)
[2018-09-04] MEDS: SPIRONOLACTONE 25 MG TABLET PO SCH (09:26)
[2018-09-04] MEDS: FUROSEMIDE INJ/PF 40 MG/4 ML SDV IV SCH ×2 (09:27→21:08)
[2018-09-04] MEDS: METOPROLOL SUCCINATE 25 MG TAB.SR.24H PO SCH (09:27)
[2018-09-04] MEDS: LOSARTAN POTASSIUM 25 MG TABLET PO SCH (09:27)
[2018-09-04] MEDS: APIXABAN 2.5 MG TABLET PO SCH ×2 (09:27→17:40)
[2018-09-04] MEDS: DOCUSATE SODIUM 100 MG CAPSULE PO SCH ×2 (09:27→17:40)
[2018-09-04] MEDS: VANCOMYCIN HCL 1,000 MG in DEXTROSE 5%-WATER 250 ML IV SCH (09:28)
[2018-09-04] MEDS: ACETAMINOPHEN 325 MG TABLET PO PRN (12:02)
--- NOTE | 2018-09-04 12:45 | RADIOLOGY REPORT (SQ) ---
EXAM DESCRIPTION: CHEST SINGLE VIEW COMPLETED DATE/TIME: 09/04/2018 11:44 am REASON FOR STUDY: reassess congestion/infiltrates COMPARISON: 09/03/2018. EXAM PARAMETERS: NUMBER OF VIEWS: One view. TECHNIQUE: Single frontal radiographic view of the chest acquired. RADIATION DOSE: NA LIMITATIONS: None. FINDINGS: LUNGS AND PLEURA: Patchy diffuse bilateral airspace disease, relatively unchanged. MEDIASTINUM AND HILAR STRUCTURES: No masses. Contour normal. HEART AND VASCULAR STRUCTURES: Mild cardiomegaly. BONES: No acute findings. HARDWARE: Pacemaker, sternotomy wires, coronary bypass markers. OTHER: No other significant finding. IMPRESSION: NO SIGNIFICANT INTERVAL CHANGE. DIFFUSE BILATERAL AIRSPACE DISEASE. TECHNICAL DOCUMENTATION: JOB ID: [id number] [employer]- All Rights Reserved Reading location - IP/workstation name: [email or web address]
[2018-09-04] MEDS: TAMSULOSIN HCL 0.4 MG CAP.SR.24H PO SCH (17:41)
--- NOTE | 2018-09-04 17:55 | PDOC PROGRESS REPORT ---
Subjective Progress Note for:: 09/04/18 Subjective:: This is an 78 year old male with chronic AFib-on Eliquis and amiodarone, CHF, CAD with prior CABG and recent cath at [facility] and COPD who presented with increasing SOB. CT chest showed multifocal infiltrates and he was treated for possible HCAP and CHF exacerbation. He was started on IV antibiotics which were recently broadened to vancomycin and Cepefime 2 days ago. Patient has been requiring BIPAP. He desaturates to the 70-80s off BIPAP. This morning, he is saturating well on BIPAP. He says his SOB has slightly improved. Reason For Visit: ACUTE RESPIRATORY FAILURE WITH HYPOXIA, AND ACUTE Physical Exam Vital Signs: Temp Pulse Resp BP Pulse Ox 98.3 F 88 35 H 129/57 H 97 09/04/18 12:00 09/04/18 16:00 09/04/18 16:00 09/04/18 12:00 09/04/18 16:00 Pulse Oximeter Continuous Start: 08/30/18 04:48 Freq: RTQ4 Status: Active Protocol: Document 09/04/18 16:00 JDR (Rec: 09/04/18 16:48 J [email or web address]) Pulse Oximetry Assessment Oxygen Saturation (92-100) 97 Oxygen Delivery Method Bi-pap Fraction of Inspired Oxygen (FIO2) 50 Equipment Usage Equipment in Use Continuous SpO2 Machine # 5 Intake & Output 09/03/18 09/04/18 09/05/18 06:59 06:59 06:59 Intake Total 650 698 340 Output Total 975 1175 Balance -325 -477 340 Weight 177 lb 0.499 oz 179 lb 10.828 oz General appearance: PRESENT: no acute distress, well-developed, well-nourished Head exam: PRESENT: atraumatic, normocephalic Eye exam: PRESENT: conjunctiva pink, EOMI, PERRLA. ABSENT: scleral icterus Ear exam: PRESENT: normal external ear exam Mouth exam: PRESENT: moist, tongue midline Neck exam: ABSENT: carotid bruit, JVD, lymphadenopathy, thyromegaly Respiratory exam: PRESENT: rales, rhonchi. ABSENT: wheezes Cardiovascular exam: PRESENT: RRR. ABSENT: diastolic murmur, rubs, systolic murmur Pulses: PRESENT: normal dorsalis pedis pul GI/Abdominal exam: PRESENT: normal bowel sounds, soft. ABSENT: distended, guarding, mass, organolmegaly, rebound, tenderness Rectal exam: PRESENT: deferred Neurological exam: PRESENT: alert, awake, oriented to person, oriented to place, oriented to time, CN II-XII grossly intact. ABSENT: motor sensory deficit Results Laboratory Results: 09/04/18 05:54 09/04/18 05:54 09/04/18 09/04/18 05:54 05:54 WBC 6.5 RBC 2.83 L Hgb 8.6 L Hct 26.0 L MCV 92 MCH 30.5 MCHC 33.1 RDW 15.3 H Plt Count 247 Sodium 145.7 H Potassium 3.8 Chloride 105 Carbon Dioxide 28 Anion Gap 13 BUN 62 H Creatinine 1.87 H Est GFR ( Amer) 42 L Est GFR (Non-Af Amer) 35 L Glucose 205 H Calcium 9.1 08/28/18 08/28/18 08/29/18 21:53 21:53 03:55 Creatine Kinase 44 L CK-MB (CK-2) 1.15 Troponin I < 0.012 < 0.012 NT-Pro-B Natriuret Pep 45083 H 08/29/18 08/29/18 09/03/18 11:31 17:14 12:42 Creatine Kinase CK-MB (CK-2) Troponin I 0.014 0.023 0.032 NT-Pro-B Natriuret Pep Impressions: Chest CT 08/28/18 23:05 IMPRESSION: 1. Findings most compatible with bilateral pulmonary edema and small bilateral pleural effusions. 2. No lobar airspace opacity to suggest lobar pneumonia however given diffuse patchy alveolar and groundglass opacities underlying infectious or inflammatory process superimposed on pulmonary edema cannot be excluded. Continued radiographic follow-up to resolution recommended. 3. Cardiomegaly with coronary artery atherosclerosis. This exam was performed according to our departmental dose-optimization program, which includes automated exposure control, adjustment of the mA and/or kV according to patient size and/or use of iterative reconstruction technique. Chest X-Ray 09/04/18 11:08 IMPRESSION: NO SIGNIFICANT INTERVAL CHANGE. DIFFUSE BILATERAL AIRSPACE DISEASE. Assessment and Plan - Diagnosis (1) Acute respiratory failure with hypoxia Is this a current diagnosis for this admission?: Yes Plan: He continues to require BIPAP. Likely a combination of HCAP on top of CHF exacerbation. As mentioned, IV antibiotics were recently broadened to vancomycin and cepefime. Currently on Lasix 40 mg daily. Will increase to 40 mg q12. He is on 80 mg PO bid at home. Considering the possibility of amiodarone toxicity if he does not show clinical response to IV antibiotics and diuresis. He is on amiodarone at home. This is already being held. He is also on IV steroids. (2) Acute on chronic combined systolic and diastolic CHF (congestive heart failure) Is this a current diagnosis for this admission?: Yes Plan: As per number 1. (3) HCAP (healthcare-associated pneumonia) Is this a current diagnosis for this admission?: Yes Plan: As per number 1. (4) Acute renal failure superimposed on stage 3 chronic kidney disease Qualifiers: Acute renal failure type: unspecified Qualified Code(s): N17.9 - Acute kidney failure, unspecified; N18.3 - Chronic kidney disease, stage 3 (moderate) Is this a current diagnosis for this admission?: Yes Plan: Repeat BMP tomorrow. (5) Chronic a-fib Is this a current diagnosis for this admission?: Yes Plan: On Eliquis and Lopressor. - Time Time Spent with patient: 25-34 minutes
[2018-09-05] MEDS: IPRATROPIUM BROMIDE 0.02% NEB 0.5 MG/2.5 ML AMPUL NEB SCH ×3 (00:01→16:25)
[2018-09-05] MEDS: LEVALBUTEROL HCL NEB 1.25 MG/3 ML AMPUL NEB SCH ×3 (00:01→16:25)
[2018-09-05] MEDS: ACETAMINOPHEN 325 MG TABLET PO PRN (00:25)
[2018-09-05] MEDS: CEFEPIME HCL 2 GM in DEXTROSE 5%-WATER 50 ML IV SCH ×2 (05:53→17:50)
[2018-09-05] MEDS: METHYLPREDNISOLONE INJ 40 MG/1 ML SDV IV SCH ×2 (05:53→17:50)
[2018-09-05] MEDS: PANTOPRAZOLE SODIUM 40 MG TABLET.DR PO SCH (05:53)
[2018-09-05 06:36] LABS: ANION GAP 13 (5-19); BLOOD UREA NITROGEN 71 mg/dL (7-20); CALCIUM 9.2 mg/dL (8.4-10.2); CARBON DIOXIDE 27 mmol/L (22-30); CHLORIDE 105 mmol/L (98-107); GLUCOSE 201 mg/dL (75-110); POTASSIUM 3.9 mmol/L (3.6-5.0); SODIUM 144.9 mmol/L (137-145)
[2018-09-05] MEDS: BUDESONIDE NEB 0.5 MG/2 ML AMPUL NEB SCH ×2 (07:27→21:39)
[2018-09-05] MEDS: ACETYLCYSTEINE 20% SOLN 800 MG/4 ML VIAL.NEB NEB SCH ×2 (08:41→21:39)
[2018-09-05 10:33] LABS: VANCOMYCIN,TROUGH 15.4 ug/mL (5.0-20.0)
[2018-09-05] MEDS: SPIRONOLACTONE 25 MG TABLET PO SCH (11:26)
[2018-09-05] MEDS: DOCUSATE SODIUM 100 MG CAPSULE PO SCH ×2 (11:26→17:41)
[2018-09-05] MEDS: LOSARTAN POTASSIUM 25 MG TABLET PO SCH (11:27)
[2018-09-05] MEDS: APIXABAN 2.5 MG TABLET PO SCH ×2 (11:27→17:41)
[2018-09-05] MEDS: METOPROLOL SUCCINATE 25 MG TAB.SR.24H PO SCH (11:27)
--- NOTE | 2018-09-05 12:07 | RADIOLOGY REPORT (SQ) ---
EXAM DESCRIPTION: CT CHEST WITHOUT COMPLETED DATE/TIME: 09/05/2018 11:28 am REASON FOR STUDY: reassess previous findings COMPARISON: Chest x-ray dated 09/04/2018, CT chest dated 08/28/2018. TECHNIQUE: CT scan performed of the chest without intravenous contrast. Images reviewed with lung, soft tissue and bone windows. Reconstructed coronal and sagittal MPR images reviewed. All images st ored on PACS. All CT scanners at this facility use dose modulation, iterative reconstruction, and/or weight based d osing when appropriate to reduce radiation dose to as low as reasonably achievable (ALARA). [facility]: Dose Right [facility]: CareDose [facility]: Dose Right [facility]: Teradose 4D [facility]: [place] RADIATION DOSE: CT Rad equipment meets quality standard of care and radiation dose reduction techniq ues were employed. CTDIvol: 15.6 mGy. DLP: 551 mGy-cm. mGy. LIMITATIONS: No technical limitations. FINDINGS: LUNGS AND PLEURA: There is extensive bilateral alveolar airspace disease. This has signif icantly progressed since prior chest CT. There are small bilateral pleural effusions. HILAR AND MEDIASTINAL STRUCTURES: There are small mediastinal nodes most likely reactive. HEART AND VASCULAR STRUCTURES: Stable in appearance. UPPER ABDOMEN: No significant findings. Limited exam. THYROID AND OTHER SOFT TISSUES: No masses. No adenopathy. BONES: No significant finding. HARDWARE: Battery pack and leads remain in place. OTHER: No other significant findings. IMPRESSION: Extensive bilateral alveolar airspace disease most likely pulmonary edema although it di ffuse infectious process cannot be excluded. Small effusions right greater than left. Findings have significantly progressed since prior chest CT. TECHNICAL DOCUMENTATION: JOB ID: [id number] Quality ID # [id number]: Final reports with documentation of one or more dose reduction techniques (e.g., Au tomated exposure control, adjustment of the mA and/or kV according to patient size, use of iterative reconstruction technique) 2010 [employer]- All Rights Reserved Reading location - IP/workstation name: [email or web address]
[2018-09-05] MEDS: FUROSEMIDE INJ/PF 40 MG/4 ML SDV IV SCH ×2 (12:30→22:40)
[2018-09-05] MEDS: VANCOMYCIN HCL 1,000 MG in DEXTROSE 5%-WATER 250 ML IV SCH (12:30)
--- NOTE | 2018-09-05 15:55 | ADVANCED CARE ---
- Diagnosis (1) Acute respiratory failure with hypoxia Diagnosis Current: Yes (2) ARDS (adult respiratory distress syndrome) Diagnosis Current: Yes (3) Acute on chronic combined systolic and diastolic CHF (congestive heart failure) Diagnosis Current: Yes (4) HCAP (healthcare-associated pneumonia) Diagnosis Current: Yes (5) Acute renal failure superimposed on stage 3 chronic kidney disease Diagnosis Current: Yes (6) Chronic a-fib Diagnosis Current: Yes Attendance: 09/05: Patient has been more BiPAP dependent in the past 24 hours. Yesterday afternoon, he was able to take a few short breaks and was saturating in the low 90s on high flow O2 but this morning he easily drops to the 70s after BiPAP. He appears more tachypneic today although he says that his shortness of breath has slightly improved. Repeat chest CT today shows progression and worsening of bilateral airspace diseases despite broad-spectrum IV antibiotics and increase in diuresis. Discussed with patient and family at bedside including , son and daughters. Patient expressed he does not want to be intubated at all. Family expressed a respect his wishes and are amenable to making him a DNR/DNI. They want to continue medical treatment at this time. Discussed possibility of transitioning to hospice and/or comfort measures if he does not show improvement in the next 24 to 48 hours and family and patient expressed they are amenable to this recommendation. Resuscitation Status: Do Not Resuscitate
--- NOTE | 2018-09-05 15:55 | PDOC PROGRESS REPORT ---
Subjective Progress Note for:: 09/05/18 Subjective:: This is an 78 year old male with chronic AFib-on Eliquis and amiodarone, CHF, CAD with prior CABG and recent cath at [facility] and COPD who presented with increasing SOB. CT chest showed multifocal infiltrates and he was treated for possible HCAP and CHF exacerbation. He was started on IV antibiotics which were recently broadened to vancomycin and Cepefime 2 days ago. 09/04: Patient has been requiring BIPAP. He desaturates to the 70-80s off BIPAP. This morning, he is saturating well on BIPAP. He says his SOB has slightly improved. 09/05: Patient has been more BiPAP dependent in the past 24 hours. Yesterday afternoon, he was able to take a few short breaks and was saturating in the low 90s on high flow O2 but this morning he easily drops to the 70s after BiPAP. He appears more tachypneic today although he says that his shortness of breath has slightly improved. Repeat chest CT today shows progression and worsening of bilateral airspace diseases despite broad-spectrum IV antibiotics and increase in diuresis. Discussed with patient and family at bedside including , son and daughters. Patient expressed he does not want to be intubated at all. Family expressed a respect his wishes and are amenable to making him a DNR/DNI. They want to continue medical treatment at this time. Discussed possibility of transitioning to hospice and/or comfort measures if he does not show improvement in the next 24 to 48 hours and family and patient expressed they are amenable to this recommendation. Reason For Visit: RAPID RESPIRATIONS Physical Exam Vital Signs: Temp Pulse Resp BP Pulse Ox 97.5 F 94 39 H 146/74 H 94 09/05/18 08:00 09/05/18 14:00 09/05/18 13:28 09/05/18 12:05 09/05/18 13:28 Pulse Oximeter Continuous Start: 08/30/18 04:48 Freq: RTQ4 Status: Active Protocol: Document 09/05/18 13:28 CHELLY (Rec: 09/05/18 13:34 BOR [email or web address]) Pulse Oximetry Assessment Oxygen Saturation (92-100) 94 Oxygen Delivery Method Bi-pap Fraction of Inspired Oxygen (FIO2) 60 Equipment Usage Initial Set Up Continuous SpO2 Machine # n5 Additional RT Notes Other Transported Pt to DC at 1120am , Arrived in Ct at 1130am, returned to pt room at 1145am. Intake & Output 09/04/18 09/05/18 09/06/18 06:59 06:59 06:59 Intake Total 698 1230 75 Output Total 1175 1450 800 Balance -477 -220 -725 Weight 179 lb 10.828 oz 175 lb 4.28 oz General appearance: PRESENT: mild distress Head exam: PRESENT: atraumatic, normocephalic Eye exam: PRESENT: conjunctiva pink, EOMI, PERRLA. ABSENT: scleral icterus Ear exam: PRESENT: normal external ear exam Mouth exam: PRESENT: moist, tongue midline Neck exam: ABSENT: carotid bruit, JVD, lymphadenopathy, thyromegaly Respiratory exam: PRESENT: rales, rhonchi. ABSENT: wheezes Cardiovascular exam: PRESENT: RRR. ABSENT: diastolic murmur, rubs, systolic murmur Pulses: PRESENT: normal dorsalis pedis pul Vascular exam: PRESENT: normal capillary refill GI/Abdominal exam: PRESENT: normal bowel sounds, soft. ABSENT: distended, guarding, mass, organolmegaly, rebound, tenderness Rectal exam: PRESENT: deferred Neurological exam: PRESENT: alert, awake, oriented to person, oriented to place, oriented to time, oriented to situation, CN II-XII grossly intact. ABSENT: motor sensory deficit Results Laboratory Results: 09/04/18 05:54 09/05/18 09:44 09/05/18 09/05/18 09/05/18 05:20 05:20 09:44 Sodium 144.9 Potassium 3.9 Chloride 105 Carbon Dioxide 27 Anion Gap 13 BUN 71 H Creatinine 1.90 H 2.08 H Est GFR ( Amer) 41 L 37 L Est GFR (Non-Af Amer) 34 L 31 L Glucose 201 H Calcium 9.2 Magnesium 2.8 H 08/28/18 08/28/18 08/29/18 21:53 21:53 03:55 Creatine Kinase 44 L CK-MB (CK-2) 1.15 Troponin I < 0.012 < 0.012 NT-Pro-B Natriuret Pep 43393 H 08/29/18 08/29/18 09/03/18 11:31 17:14 12:42 Creatine Kinase CK-MB (CK-2) Troponin I 0.014 0.023 0.032 NT-Pro-B Natriuret Pep Impressions: Chest X-Ray 09/04/18 11:08 IMPRESSION: NO SIGNIFICANT INTERVAL CHANGE. DIFFUSE BILATERAL AIRSPACE DISEASE. Chest CT 09/05/18 08:18 IMPRESSION: Extensive bilateral alveolar airspace disease most likely pulmonary edema although it diffuse infectious process cannot be excluded. Small ef fusions right greater than left. Findings have significantly progressed since prior chest CT. Assessment and Plan - Diagnosis (1) Acute respiratory failure with hypoxia Is this a current diagnosis for this admission?: Yes Plan: He continues to require BIPAP. Likely a combination of HCAP on top of CHF exacerbation. As mentioned, IV antibiotics were recently broadened to vancomycin and cepefime. Currently on Lasix 40 mg daily. Will increase to 40 mg q12. He is on 80 Lasix mg PO bid at home. Considering the possibility of amiodarone toxicity if he does not show clinical response to IV antibiotics and diuresis. He is on amiodarone at home. This is already being held. He is also on IV steroids. 09/05: Patient has been more BiPAP dependent in the past 24 hours. Yesterday afternoon, he was able to take a few short breaks and was saturating in the low 90s on high flow O2 but this morning he easily drops to the 70s after BiPAP. He appears more tachypneic today although he says that his shortness of breath has slightly improved. Repeat chest CT today shows progression and worsening of bilateral airspace diseases despite broad-spectrum IV antibiotics and increase in diuresis. Discussed with patient and family at bedside including , son and daughters. Patient expressed he does not want to be intubated at all. Family expressed a respect his wishes and are amenable to making him a DNR/DNI. They want to continue medical treatment at this time. Discussed possibility of transitioning to hospice and/or comfort measures if he does not show improvement in the next 24 to 48 hours and family and patient expressed they are amenable to this recommendation. (2) ARDS (adult respiratory distress syndrome) Is this a current diagnosis for this admission?: Yes Plan: As per number 1. (3) Acute on chronic combined systolic and diastolic CHF (congestive heart failure) Is this a current diagnosis for this admission?: Yes Plan: As per number 1. (4) HCAP (healthcare-associated pneumonia) Is this a current diagnosis for this admission?: Yes Plan: As per number 1. (5) Acute renal failure superimposed on stage 3 chronic kidney disease Qualifiers: Acute renal failure type: unspecified Qualified Code(s): N17.9 - Acute kidney failure, unspecified; N18.3 - Chronic kidney disease, stage 3 (moderate) Is this a current diagnosis for this admission?: Yes Plan: Repeat BMP tomorrow. (6) Chronic a-fib Is this a current diagnosis for this admission?: Yes Plan: On Paul and Yohannes.
[2018-09-05] MEDS: TAMSULOSIN HCL 0.4 MG CAP.SR.24H PO SCH (17:09)
--- NOTE | 2018-09-05 23:41 | EKG REPORT ---
SEVERITY:- ABNORMAL ECG - ATRIAL-SENSED VENTRICULAR-PACED RHYTHM : Confirmed by: Usman Galicia 05-Sep-2018 23:40:53
[2018-09-06] MEDS: LEVALBUTEROL HCL NEB 1.25 MG/3 ML AMPUL NEB SCH ×3 (00:29→16:30)
[2018-09-06] MEDS: IPRATROPIUM BROMIDE 0.02% NEB 0.5 MG/2.5 ML AMPUL NEB SCH ×3 (00:29→16:30)
[2018-09-06 01:28] VITALS: BP 138/64
[2018-09-06] MEDS: PANTOPRAZOLE SODIUM 40 MG TABLET.DR PO SCH (06:35)
[2018-09-06] MEDS: CEFEPIME HCL 2 GM in DEXTROSE 5%-WATER 50 ML IV SCH (06:35)
[2018-09-06] MEDS: METHYLPREDNISOLONE INJ 40 MG/1 ML SDV IV SCH ×2 (06:36→20:14)
[2018-09-06] MEDS: ACETYLCYSTEINE 20% SOLN 800 MG/4 ML VIAL.NEB NEB SCH ×2 (09:57→20:03)
[2018-09-06] MEDS: BUDESONIDE NEB 0.5 MG/2 ML AMPUL NEB SCH ×2 (09:57→20:04)
[2018-09-06] MEDS ORDERED: LORAZEPAM 1 MG TABLET PO PRN (10:19)
[2018-09-06] MEDS: APIXABAN 2.5 MG TABLET PO SCH ×2 (10:20→20:14)
[2018-09-06] MEDS: DOCUSATE SODIUM 100 MG CAPSULE PO SCH ×2 (10:20→20:14)
[2018-09-06] MEDS: FUROSEMIDE INJ/PF 40 MG/4 ML SDV IV SCH (10:20)
[2018-09-06] MEDS: LOSARTAN POTASSIUM 25 MG TABLET PO SCH (10:20)
[2018-09-06] MEDS: SPIRONOLACTONE 25 MG TABLET PO SCH (10:20)
[2018-09-06] MEDS: METOPROLOL SUCCINATE 25 MG TAB.SR.24H PO SCH (10:21)
[2018-09-06] MEDS: VANCOMYCIN HCL 1,000 MG in DEXTROSE 5%-WATER 250 ML IV SCH (10:21)
[2018-09-06] MEDS ORDERED: LORAZEPAM INJ 2 MG/1 ML VIAL IV PRN (10:58)
[2018-09-06] MEDS: MORPHINE SULFATE 10 MG/ML INJ IV PRN ×2 (14:15→16:49)
[2018-09-06] MEDS ORDERED: MORPHINE SULFATE 10 MG/ML INJ IV PRN (17:09)
[2018-09-06] MEDS: LORAZEPAM INJ 2 MG/1 ML VIAL IV PRN ×2 (17:32→18:32)
--- NOTE | 2018-09-06 19:23 | Death Summary ---
Summary Date : 09/06/18 Autopsy: No Resuscitation Status: Comfort Measures Only - Final Diagnosis (1) Acute respiratory failure with hypoxia Is this a current diagnosis for this admission?: Yes (2) ARDS (adult respiratory distress syndrome) Is this a current diagnosis for this admission?: Yes (3) Acute on chronic combined systolic and diastolic CHF (congestive heart fail ure) Is this a current diagnosis for this admission?: Yes (4) HCAP (healthcare-associated pneumonia) Is this a current diagnosis for this admission?: Yes (5) Acute renal failure superimposed on stage 3 chronic kidney disease Is this a current diagnosis for this admission?: Yes (6) Chronic a-fib Is this a current diagnosis for this admission?: Yes Hospital Course:: This is an 78 year old male with chronic AFib-on Eliquis and amiodarone, CHF, CAD with prior CABG and recent cath at [facility] and COPD who presented with increasing SOB. CT chest showed multifocal infiltrates and he was treated for possible HCAP and CHF exacerbation. He was started on IV antibiotics which were recently broadened to vancomycin and Cepefime 2 days ago. 09/04: Patient has been requiring BIPAP. He desaturates to the 70-80s off BIPAP. This morning, he is saturating well on BIPAP. He says his SOB has slightly improved. 09/05: Patient has been more BiPAP dependent in the past 24 hours. Yesterday afternoon, he was able to take a few short breaks and was saturating in the low 90s on high flow O2 but this morning he easily drops to the 70s after BiPAP. He appears more tachypneic today although he says that his shortness of breath has slightly improved. Repeat chest CT today shows progression and worsening of bilateral airspace diseases despite broad-spectrum IV antibiotics and increase in diuresis. Discussed with patient and family at bedside including , son and daughters. Patient expressed he does not want to be intubated at all. Family expressed a respect his wishes and are amenable to making him a DNR/DNI. They want to continue medical treatment at this time. Discussed possibility of transitioning to hospice and/or comfort measures if he does not show improvement in the next 24 to 48 hours and family and patient expressed they are amenable to proceeding with comfort measures, 09/06: Patient was made comfort care and eventually at 7:16 pm today.
[2018-09-06] MEDS: TAMSULOSIN HCL 0.4 MG CAP.SR.24H PO SCH (20:14)
== END 2018-09-06 21:20 | DRG 291 ==
LOC: ER 21:05 → EH 23:31 → 4S 08-29 01:26
PROVIDERS: ADMIT Emergency Medicine; ATTEND Internal Medicine
PROC: 5A09557 Assistance with Respiratory Ventilation, Greater than 96 Consecutive Hours, Continuous Positive Airway Pressure (ICD-10-PCS; 2018-08-28)
PROC: 30233N1 Transfusion of Nonautologous Red Blood Cells into Peripheral Vein, Percutaneous Approach (ICD-10-PCS; principal; 2018-08-29)
DX: I50.43 Acute on chronic combined systolic (congestive) and diastolic (congestive) heart failure (principal); J96.21 Acute and chronic respiratory failure with hypoxia; J18.9 Pneumonia, unspecified organism; N17.9 Acute kidney failure, unspecified; J44.0 Chronic obstructive pulmonary disease with (acute) lower respiratory infection; Z51.5 Encounter for palliative care; I48.2 Chronic atrial fibrillation; N18.3 Chronic kidney disease, stage 3 (moderate); I25.2 Old myocardial infarction; I25.10 Atherosclerotic heart disease of native coronary artery without angina pectoris; E78.5 Hyperlipidemia, unspecified; J44.9 Chronic obstructive pulmonary disease, unspecified; N40.0 Benign prostatic hyperplasia without lower urinary tract symptoms; K44.9 Diaphragmatic hernia without obstruction or gangrene; M19.90 Unspecified osteoarthritis, unspecified site; Z79.01 Long term (current) use of anticoagulants; Z95.810 Presence of automatic (implantable) cardiac defibrillator; Z87.891 Personal history of nicotine dependence; Z88.0 Allergy status to penicillin; Z66 Do not resuscitate
CPT/HCPCS: 36415; 36430; 36600; 71045; 71250; 80048; 80053; 80061; 80202; 81001; 82550; 82553; 82565; 82803; 83735; 83880; 84439; 84443; 84481; 84484; 85025; 85027; 86850; 86900; 86901; 86920; 87040; 87070; 87077; 87086; 87186; 87205; 93005; 93010; 94640; 94660; 94762; 96374; 99285; J0456; J0692; J0696; J1940; J2060; J2270; J2920; J3370; J3490; J7060; J7614; P9016